=== PATIENT | male | born 1940 | race Caucasian/White ===

== ENCOUNTER 2017-03-13 09:20 | Emergency (ER) | payer MEDICARE, OTHER ==
[~2017-03-13] VITALS: Ht 172.7 cm; Wt 91.6 kg
[~2017-03-13 09:20] MED LIST: ASPI-558 PO; LISI-126 PO; OMEP20TA11 PO
--- OUTSIDE RECORDS SUMMARY | 2017-03-13 09:24 | XMS REPORT | Referral Summary ---
Author Author [facility] Organization [facility] Address Unknown Phone Unavailable Care Team Providers Care Special Class Welder Name Role Phone Teri Paul Primary Care Physician [phone] Encounter Date(s): 04/07/15 - 04/07/15 [facility], [address] [place] [address]- Discharge Diagnosis: Erectile dysfunction Discharge Diagnosis: Gastroesophageal reflux disease Discharge Diagnosis: Hand numbness Discharge Diagnosis: Hyperlipidemia Discharge Diagnosis: Need for pneumococcal vaccination Discharge Diagnosis: Chest pain Discharge Diagnosis: Adenomatous colon polyp Discharge Diagnosis: Leg cramps Discharge Diagnosis: Benign essential hypertension Discharge Diagnosis: Obstructive sleep apnea syndrome Discharge Disposition: 01-Home or Self Care Attending Physician: Ivan Paul MD Admitting Physician: Ivan Paul MD Vital Signs Most recent to 1 oldest [Reference Range]: Temperature Tympanic 36.3 degC [36.6-38.1 degC] *LOW* (04/07/15 8:45 AM) Peripheral Pulse 64 bpm Rate [60-100 bpm] (04/07/15 8:45 AM) Blood Pressure 154/75 mmHg [90-140/60-90 mmHg] *HI* (04/07/15 8:45 AM) Problem List Condition Effective Dates Status Health Status Informant Adenomatous colon Active polyp(Confirmed) Anginal Active pain(Confirmed) Xerosis of < 08/08/14 Resolved skin(Confirmed) Benign essential Active hypertension (disorder)(Confirmed ) Benign < 08/08/14 Resolved hypertension(Confirm ed) Benign neoplasm of Resolved colon (disorder)(Confirmed ) Colon < 08/08/14 Resolved polyp(Confirmed) Cutaneous < 08/08/14 Resolved horn(Confirmed) Depression(Confirmed < 08/08/14 Resolved ) Erectile Active dysfunction(Confirme d) Esophageal < 08/08/14 Resolved reflux(Confirmed) Gastroesophageal Active reflux disease (disorder)(Confirmed ) GERD < 08/08/14 Resolved (gastroesophageal reflux disease)(Confirmed) Hyperlipidemia(Confi Active rmed) Hypertension(Confirm Active ed) Hypotension(Confirme < 08/08/14 Resolved d) Inflamed seborrheic Resolved keratosis (disorder)(Confirmed ) Enlarged Active prostate(Confirmed) Obesity(Confirmed) Active patient Obstructive sleep Active apnea syndrome (disorder)(Confirmed ) Pure Resolved hypercholesterolemia (disorder)(Confirmed ) Sleep apnea, < 08/08/14 Resolved obstructive(Confirme d) 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/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(Confirm ed) Allergies, Adverse Reactions, Alerts No Known Medication Allergies Medications Aspirin Low Strength 81 mg, Oral, Daily, 0 Refill(s) Start Date: 10/07/14 Status: Ordered finasteride 5 mg oral tablet See Instructions, TAKE ONE TABLET BY MOUTH DAILY, # 90 tabs, 3 Refill(s), eRx: [facility] #[id number], TAKE ONE TABLET BY MOUTH DAILY Start Date: 05/27/15 Status: Ordered Hyzaar 50 mg-12.5 mg oral tablet See Instructions, TAKE ONE TABLET BY MOUTH EVERY DAY, # 30 tabs, 3 Refill(s), eRx: [facility] #[id number], TAKE ONE TABLET BY MOUTH EVERY DAY Start Date: 05/15/15 Status: Ordered omeprazole 20 mg oral delayed release capsule See Instructions, TAKE ONE CAPSULE BY MOUTH EVERY DAY, # 30 caps, 5 Refill(s), eRx: [facility] #[id number], TAKE ONE CAPSULE BY MOUTH EVERY DAY Start Date: 04/10/15 Status: Ordered Viagra 50 mg oral tablet See Instructions, TAKE ONE TABLET BY MOUTH EVERY DAY NEEDED, # 10 tabs, 1 Refill(s), eRx: [facility] #[id number], TAKE ONE TABLET BY MOUTH EVERY DAY NEEDED Start Date: 07/09/15 Status: Ordered Results Chemistry Most recent to 1 oldest [Reference Range]: Sodium Lvl [135-144 140 mEq/L mEq/L] (04/07/15 9:20 AM) Potassium Lvl 4.2 mEq/L [3.5-5.2 mEq/L] (04/07/15 9:20 AM) Chloride [99-111 103 mEq/L mEq/L] (04/07/15 9:20 AM) CO2 [23-31 mEq/L] 27 mEq/L (04/07/15 9:20 AM) AGAP [3-20] 10 (04/07/15 9:20 AM) BUN [8-26 mg/dL] 17 mg/dL (04/07/15 9:20 AM) Glucose Lvl [70-99 99 mg/dL mg/dL] (04/07/15 9:20 AM) Creatinine Lvl 0.80 mg/dL [0.72-1.25 mg/dL] (04/07/15 9:20 AM) eGFR [>60 mL/min] >60 mL/min 1 (04/07/15 9:20 AM) Calcium Lvl 9.6 mg/dL [8.9-10.5 mg/dL] (04/07/15 9:20 AM) Chol [0-199 mg/dL] 221 mg/dL *HI* (04/07/15:20 AM) Trig [0-149 mg/dL] 138 mg/dL (04/07/15 9:20 AM) HDL [40-84 mg/dL] 45 mg/dL (04/07/15 9:20 AM) LDL [0-130 mg/dL] 148 mg/dL *HI* (04/07/15 9:20 AM) VLDL Cholesterol 28 mg/dL [0-28 mg/dL] (04/07/15 9:20 AM) Cardiac Risk 4.9 [0.0-5.7] (04/07/15 9:20 AM) 1Result Comment: Multiply eGFR results by 1.21 for race. Immunizations Vaccine Date Refusal Reason influenza virus vaccine, live 10/01/13 influenza virus vaccine, live 09/04/12 pneumococcal 13-valent conjugate vaccine 04/07/15 pneumococcal 23-polyvalent vaccine 01/09/08 tetanus-diphth toxoids (Td) adult/adol 11/08/02 zoster vaccine live 02/23/10 Procedures Procedure Date Related Diagnosis Body Site Cystoscopy 04/25/13 Eye examination1 10/31/12 Colonoscopy2 05/24/11 Colonoscopy 2004 Fusion of lumbar spine 1994 Right Inguinal hernia 1Dtalya Puentes 2Neg 05-24-11, Recheck 2016 Social History Social History Type Response Smoking Status Never smoker Assessment and Plan Extracted from: Title: Office Visit Note-CRMMP Author: Ivan Paul MD Date: 04/07/15 Assessment/Plan Adenomatous colon polyp Repeat colonoscopy due in 2016. Benign essential hypertension Today's blood pressure a bit high. Advised to monitor blood pressures over a month's time and follow-up if they continue to run above goal of 140/90 or less. Ordered: Basic Metabolic Panel Chest pain These pains are atypical for cardiac cause, other obvious explanation identified. EKG was obtained which shows no significant change, although there is some mild nonspecific IVCD. We'll refer to Dr. Lester for reevaluation (he did previous testing in 2010). Ordered: EKG with Interpretation [id number] Erectile dysfunction Gastroesophageal reflux disease Hand numbness Symptoms seem fairly minor and mild, probably positional. I did not launch any further workup at this point but follow-up if these get worse. Hyperlipidemia Check fasting lipids today. Ordered: Lipid Panel Leg cramps Check BMP today. Need for pneumococcal vaccination Obstructive sleep apnea syndrome Her to sleep medicine for reevaluation. If all goes well, will follow-up in 6 months. Follow-up sooner if needed.
--- OUTSIDE RECORDS SUMMARY | 2017-03-13 09:24 | XMS REPORT | Referral Summary ---
Author Author [facility] Organization [facility] Address Unknown Phone Unavailable Care Team Providers Care Sustainable Development Policy Analyst Name Role Phone Teri Paul Primary Care Physician [phone] Encounter VC Date(s): 05/28/15 - 05/28/15 [facility] [address] [place] [address] Discharge Diagnosis: Left knee pain Discharge Diagnosis: Hematoma Discharge Diagnosis: Prepatellar bursitis Discharge Disposition: 01-Home or Self Care Attending Physician: Ivan Paul MD Admitting Physician: Iavn Paul MD Vital Signs Most recent to 1 oldest [Reference Range]: Temperature Tympanic 37.1 degC [36.6-38.1 degC] (05/28/15 11:12 AM) Peripheral Pulse 64 bpm Rate [60-100 bpm] (05/28/15 11:12 AM) Blood Pressure 138/75 mmHg [90-140/60-90 mmHg] (05/28/15 11:12 AM) Problem List Condition Effective Dates Status [...] GERD < 08/08/14 Resolved (gastroesophageal reflux disease)(Confirmed) Hypertension(Confirm Active ed) Hypotension(Confirme < 08/08/14 Resolved d) Inflamed seborrheic Resolved keratosis (disorder)(Confirmed ) Enlarged Active prostate(Confirmed) Hyperlipidemia(Confi Active rmed) Obesity(Confirmed) Active patient Obstructive sleep Active apnea [...] DAILY, # 90 tabs, 3 Refill(s), eRx: [facility] #[id number], TAKE ONE TABLET BY MOUTH DAILY Start Date: 05/27/15 Status: Ordered Hyzaar 50 mg-12.5 mg oral tablet See Instructions, TAKE ONE TABLET BY MOUTH EVERY DAY, # 30 tabs, 3 Refill(s), eRx: [facility] #[id number], TAKE ONE TABLET BY MOUTH EVERY DAY Start Date: 05/15/15 Status: Ordered omeprazole 20 mg oral delayed release capsule See Instructions, TAKE ONE CAPSULE BY MOUTH EVERY OTHER DAY, # 30 caps, 5 Refill(s), eRx: [facility] #[id number], TAKE ONE CAPSULE BY MOUTH EVERY DAY Start Date: 04/10/15 Status: Ordered Viagra 50 mg oral tablet See Instructions, TAKE ONE TABLET BY MOUTH EVERY DAY NEEDED, # 10 tabs, 1 Refill(s), eRx: [facility] #[id number], TAKE ONE TABLET BY MOUTH EVERY DAY NEEDED Start Date: 07/09/15 Status: Ordered Results No data available for this section Immunizations Vaccine Date Refusal Reason influenza virus vaccine, inactivated 09/20/15 influenza virus vaccine, live 10/01/13 influenza virus vaccine, live 09/04/12 pneumococcal 13-valent conjugate vaccine 09/20/15 pneumococcal 13-valent conjugate vaccine 04/07/15 pneumococcal 23-polyvalent vaccine 01/09/08 tetanus-diphth toxoids (Td) adult/adol 11/08/02 zoster vaccine live 02/23/10 Procedures Procedure Date Related Diagnosis Body Site Cystoscopy 04/25/13 Eye examination1 10/31/12 Colonoscopy2 6/27/11 Colonoscopy 2004 Fusion of lumbar spine 1994 Right Inguinal hernia 1Dr. Dhaval 2Neg 27-, Recheck 2016 Social History Social History Type Response Smoking Status Never smoker Assessment and Plan Extracted from: Title: Office Visit Note Author: Ivan Paul MD Date: 05/28/15 Assessment/Plan Hematoma Resolving hematoma. Observe and follow-up if it does not completely resolve spontaneously. Left knee pain X-rays are obtained and show moderate osteoarthritis, particularly the medial aspect of the joint space and a little bit under the kneecap. I suggested Tylenol 3000 mg daily as initial pain medication. Follow-up if symptoms not adequately controlled with that. Ordered: XR Knee 3 Views Left Prepatellar bursitis There is perhaps an element of prepatellar bursitis, but there is also some chronic underlying bony reaction/prominence. At this point no specific treatment needed.
--- OUTSIDE RECORDS SUMMARY | 2017-03-13 09:24 | XMS REPORT | Referral Summary ---
Author Author [facility] Organization [facility] Address Unknown Phone Unavailable Care Team Providers Care Tearoom Host Name Role Phone Teri Paul Primary Care Physician [phone] Encounter VC Date(s): 05/06/16 - 05/06/16 [facility] [address] [place] [address] [place] [address] Discharge Disposition: 01-Home or Self Care Attending Physician: Mervin Esquivel JR, MD Admitting Physician: Mervin Esquivel JR, MD Referring Physician: Ivan Paul MD Vital Signs Most recent to 1 oldest [Reference Range]: Temperature Tympanic 36.3 degC [36.6-38.1 degC] *LOW* (05/06/16 9:06 AM) Apical Heart Rate 54 bpm [60-100 bpm] *LOW* (05/06/16 9:06 AM) Blood Pressure 142/80 mmHg [90-140/60-90 mmHg] *HI* (05/06/16 9:06 AM) SpO2 90 % (05/06/16 9:06 AM) Problem List Condition Effective Dates Status [...] DAILY, # 90 tabs, 3 Refill(s), eRx: [facility] #[id number], TAKE ONE TABLET BY MOUTH DAILY Start Date: 05/27/15 Status: Ordered losartan-hydrochlorothiazide 50 mg-12.5 mg oral tablet See Instructions, TAKE ONE TABLET BY MOUTH DAILY, # 30 tabs, 5 Refill(s), eRx: [facility] #[id number], TAKE ONE TABLET BY MOUTH DAILY Start Date: 04/27/16 Status: Ordered omeprazole 20 mg oral delayed release capsule See Instructions, TAKE ONE CAPSULE BY MOUTH EVERY DAY, # 30 caps, 1 Refill(s), eRx: [facility] #[id number], TAKE ONE CAPSULE BY MOUTH EVERY DAY Start Date: 02/23/16 Status: Ordered Viagra 100 mg oral tablet 50 mg 0.5 tabs, Oral, Daily, as needed for erectile dysfunction, # 10 tabs, 0 Refill(s), Pharmacy: [facility] #[id number], 0.5 tabs Oral Daily,PRN:as needed for erectile dysfunction Start Date: 05/06/16 Status: Ordered Results No data available for [...] 04/25/13 Eye examination1 10/31/12 Colonoscopy2 05/24/11 Colonoscopy 2005 Fusion of lumbar spine 1994 Right Inguinal hernia 1DrJessica Puentes 2Neg 05-24-11, Recheck 2016 Social History Social History Type Response Smoking Status Never smoker Assessment and Plan No data available for this section
--- OUTSIDE RECORDS SUMMARY | 2017-03-13 09:24 | XMS REPORT | Referral Summary ---
Author Author [facility] Organization [facility] Address Unknown Phone Unavailable Care Team Providers Care Lapel Padder Blindstitch Name Role Phone Teri Paul Primary Care Physician [phone] Encounter VC Date(s): 05/06/15 - 05/06/15 [facility] [address] [place] [address] [place] [address]- Discharge Diagnosis: BPH Discharge Disposition: 01-Home or Self Care Attending Physician: Mervin Esquivel JR, MD Admitting Physician: Mervin Esquivel JR, MD Vital Signs Most recent to 1 oldest [Reference Range]: Peripheral Pulse 59 bpm Rate [60-100 bpm] *LOW* (05/06/15 10:53 AM) Blood Pressure 144/72 mmHg [90-140/60-90 mmHg] *HI* (05/06/15 10:53 AM) SpO2 97 % (05/06/15 10:53 AM) Problem List Condition Effective Dates Status [...] [facility] #[id number], TAKE ONE TABLET BY MOUTH DAILY Start Date: 05/27/15 Status: Ordered Hyzaar 50 mg-12.5 mg oral tablet See Instructions, TAKE ONE TABLET BY MOUTH EVERY DAY, # 30 tabs, 3 Refill(s), eRx: [facility] #[id number], TAKE ONE TABLET BY MOUTH EVERY DAY Start Date: 05/15/15 Status: Ordered omeprazole 20 mg oral delayed release capsule See Instructions, TAKE ONE CAPSULE BY MOUTH EVERY DAY, # 30 caps, 5 Refill(s), eRx: [facility] #[id number], TAKE ONE CAPSULE BY MOUTH EVERY DAY Start Date: 04/10/15 Status: Ordered Viagra 50 mg oral tablet See Instructions, TAKE ONE TABLET BY MOUTH EVERY DAY NEEDED, # 10 tabs, 1 Refill(s), eRx: [facility] #[id number], TAKE ONE TABLET BY MOUTH EVERY DAY NEEDED Start Date: 07/09/15 Status: Ordered Results Chemistry Most recent to 1 oldest [Reference Range]: PSA (wihout Reflex 0.6 ng/mL 1 Free) [0.0-6.5 (05/06/15 10:50 AM) ng/mL] 1Result Comment: AUA PSA Best Practice Guidelines: Age-Adjusted PSA Values by Ethnic Group Age Range Asians - Caucasians Americans 40-49 0-2.0 0-2.0 0-2.5 50-59 0-3.0 0-4.0 0-3.5 60-69 0-4.0 0-4.5 0-4.5 70-79 0-5.0 0-5.5 0-6.5 Immunizations Vaccine Date Refusal Reason influenza virus vaccine, live 10/01/13 influenza virus vaccine, live 09/04/12 pneumococcal 13-valent conjugate vaccine 04/07/15 pneumococcal 23-polyvalent vaccine 01/09/08 tetanus-diphth toxoids (Td) adult/adol 11/08/02 zoster vaccine live 02/23/10 Procedures Procedure Date Related Diagnosis Body Site Cystoscopy 04/25/13 Eye examination1 10/31/12 Colonoscopy2 05/24/11 Colonoscopy 2004 Fusion of lumbar spine 1994 Right Inguinal hernia 1Dr. Dhaval 2Neg 05-24-11, Recheck 2016 Social History Social History Type Response Smoking Status Never smoker Assessment and Plan Extracted from: Title: Ambulatory Patient Education Author: Mervin Esquivel JR, MD Date : 05/06/15 Follow Up With: Where: When: Ivan Paul [address] [place] [address] Drive; [place] [address] Business (1) Within 3 to 5 days Comments: Follow Up With: Where: When: Mervin Esquivel [address] [place] [address] Drive; [place] [address] Business (1) In 1 year 05/06/2016 Comments: Extracted from: Title: Office Visit Note Author: Mervin Esquivel JR, MD Date: 05/06/15 Assessment/Plan BPH With lower urinary tract symptoms taking finasteride. Erectile dysfunction he is taking Viagra. We will continue. Essential hypertension. Continue taking Hyzaar and aspirin. History of GERD. Continue taking omeprazole. Recheck in my office in one year. PSA a week before next visit or to come and see me sooner if having troubles with urination. 15 minute face to face visit with 2/3 of the visit devoted to counseling. Ordered: Office Visit Level 3 Est [id number]
--- OUTSIDE RECORDS SUMMARY | 2017-03-13 09:24 | XMS REPORT | Referral Summary ---
Author Author [facility] Organization [facility] Address Unknown Phone Unavailable Care Team Providers Care Caramel Cutter Machine Name Role Phone Teri Paul Primary Care Physician [phone] Encounter Date(s): 05/19/15 - 05/19/15 [facility] [address] [facility], [facility] [address] [place], [place] [address] Discharge Diagnosis: Obstructive sleep apnea, adult Discharge Disposition: 01-Home or Self Care Attending Physician: Stefano Suarez MD Admitting Physician: Stefano Suarez MD Vital Signs No data available for this section Problem List Condition Effective Dates Status Health [...] DAILY, # 90 tabs, 3 Refill(s), eRx: [facility] #[id number], TAKE ONE TABLET BY MOUTH DAILY Start Date: 05/27/15 Status: Ordered Hyzaar 50 mg-12.5 mg oral tablet See Instructions, TAKE ONE TABLET BY MOUTH EVERY DAY, # 30 tabs, 3 Refill(s), eRx: [facility] #[id number], TAKE ONE TABLET BY MOUTH EVERY DAY Start Date: 05/15/15 Status: Ordered omeprazole 20 mg oral delayed release capsule See Instructions, TAKE ONE CAPSULE BY MOUTH EVERY OTHER DAY, # 30 caps, 5 Refill(s), eRx: [facility] #[id number], TAKE ONE CAPSULE BY MOUTH EVERY DAY Start Date: 04/10/15 Status: Ordered Viagra 50 mg oral tablet See Instructions, TAKE ONE TABLET BY MOUTH EVERY DAY NEEDED, # 10 tabs, 1 Refill(s), eRx: [facility] #[id number], TAKE ONE TABLET BY MOUTH EVERY DAY [...]
--- OUTSIDE RECORDS SUMMARY | 2017-03-13 09:24 | XMS REPORT | Referral Summary ---
Author Author [facility] Organization [facility] Address Unknown Phone Unavailable Care Team Providers Care Manager Intel Name Role Phone Teri Paul Primary Care Physician [phone] Encounter VC Date(s): 06/05/15 - 06/05/15 [facility] [address] [facility], [address] [address] Discharge Diagnosis: Obstructive sleep apnea syndrome (disorder) Discharge Disposition: 01-Home or Self Care Attending Physician: Stefano Suarez MD Admitting Physician: Stefano Suarez MD Vital Signs Most recent to 1 oldest [Reference Range]: Peripheral Pulse 57 bpm Rate [60-100 bpm] *LOW* (06/05/15 10:47 AM) Blood Pressure 136/80 mmHg [90-140/60-90 mmHg] (06/05/15 10:47 AM) SpO2 94 % (06/05/15 10:47 AM) Problem List Condition Effective Dates Status [...] DAILY, # 90 tabs, 3 Refill(s), eRx: [facility] #[id number], TAKE ONE TABLET BY MOUTH DAILY Start Date: 05/27/15 Status: Ordered Hyzaar 50 mg-12.5 mg oral tablet See Instructions, TAKE ONE TABLET BY MOUTH EVERY DAY, # 30 tabs, 3 Refill(s), eRx: [facility] #[id number], TAKE ONE TABLET BY MOUTH EVERY DAY Start Date: 05/15/15 Status: Ordered omeprazole 20 mg oral delayed release capsule See Instructions, TAKE ONE CAPSULE BY MOUTH EVERY OTHER DAY, # 30 caps, 5 Refill(s), eRx: [facility] #[id number], TAKE ONE CAPSULE BY MOUTH EVERY DAY Start Date: 04/10/15 Status: Ordered Viagra 50 mg oral tablet See Instructions, TAKE ONE TABLET BY MOUTH EVERY DAY NEEDED, # 10 tabs, 1 Refill(s), eRx: [facility] #[id number], TAKE ONE TABLET BY MOUTH EVERY DAY [...] Extracted from: Title: Office Visit Note Author: Stefano Suarez MD Date: 06/05/15 Assessment/Plan Obstructive sleep apnea syndrome (disorder) Impression: Mild obstructive sleep apnea syndrome, with more severe pathology during REM sleep. The patient has failed CPAP. He has been tried on multiple pressures with multiple masks and he cannot tolerate CPAP treatment. A bilevel machine is indicated. Plan: We reviewed the study in detail. He was given a summary page and an example page. After discussion of the options, he is going to come in for a bilevel titration. Assuming he tolerates the bilevel pressure better, we will then order him a machine and see him back afterwards. Referrals to Other Providers Referred by: Stefano Suarez MD
[2017-03-13 09:25] VITALS: Ht 172.7 cm; Wt 91.6 kg
--- OUTSIDE RECORDS SUMMARY | 2017-03-13 09:25 | XMS REPORT | Referral Summary ---
Author Author [facility] Organization [facility] Address Unknown Phone Unavailable Care Team Providers Care Flight Test Mechanic Name Role Phone Teri Paul Primary Care Physician [phone] Encounter Date(s): 04/07/15 - 04/07/15 [facility], [address] [place] [address]- Discharge Diagnosis: Erectile dysfunction Discharge Diagnosis: Gastroesophageal [...] DAILY, # 90 tabs, 3 Refill(s), eRx: [facility] #[id number], TAKE ONE TABLET BY MOUTH DAILY Start Date: 05/27/15 Status: Ordered Hyzaar 50 mg-12.5 mg oral tablet See Instructions, TAKE ONE TABLET BY MOUTH EVERY DAY, # 30 tabs, 3 Refill(s), eRx: [facility] #[id number], TAKE ONE TABLET BY MOUTH EVERY DAY Start Date: 05/15/15 Status: Ordered omeprazole 20 mg oral delayed release capsule See Instructions, TAKE ONE CAPSULE BY MOUTH EVERY DAY, # 30 caps, 5 Refill(s), eRx: [facility] #[id number], TAKE ONE CAPSULE BY MOUTH EVERY DAY Start Date: 04/10/15 Status: Ordered Viagra 50 mg oral tablet See Instructions, TAKE ONE TABLET BY MOUTH EVERY DAY NEEDED, # 10 tabs, 1 Refill(s), eRx: [facility] #[id number], TAKE ONE TABLET BY MOUTH EVERY DAY [...] testing in 2010). Ordered: EKG with Interpretation [id number] Erectile dysfunction Gastroesophageal reflux disease Hand numbness [...]
--- OUTSIDE RECORDS SUMMARY | 2017-03-13 09:25 | XMS REPORT | Referral Summary ---
Author Author [facility] Organization [facility] Address Unknown Phone Unavailable Care Team Providers Care Appraiser Auditor Name Role Phone Teri Paul Primary Care Physician [phone] Encounter VC VIANEY [id number] Date(s): 12/23/16 - 12/23/16 [facility] [address], [place] [address] Discharge Diagnosis: Nerve deafness, bilateral Discharge Disposition: 01-Home or Self Care Attending Physician: Ric Shukla JR, MD Admitting Physician: Ric Shukla JR, MD Vital Signs Most recent to 1 oldest [Reference Range]: Temperature Oral 36.6 degC [35.8-37.3 degC] (12/16/16 9:00 AM) Temperature Temporal 36.4 degC Artery [36.3-37.8 (12/23/16 2:09 PM) degC] Peripheral Pulse 55 bpm Rate [60-100 bpm] *LOW* (12/23/16 6:42 AM) Heart Rate Monitored 77 bpm [60-100 bpm] (12/23/16 4:05 PM) Respiratory Rate 20 br/min [14-20 br/min] (12/23/16 4:05 PM) Blood Pressure 164/98 mmHg [90-140/60-90 mmHg] *HI* (12/23/16 4:05 PM) Mean Arterial 124 mmHg Pressure, Cuff (12/23/16 4:05 PM) SpO2 98 % (12/23/16 4:05 PM) Problem List Condition Effective Dates Status Health Status Informant Adenomatous colon Active polyp(Confirmed) Anginal Active pain(Confirmed) Arthritis of both Active patient hands(Confirmed) Xerosis of < 08/08/14 Resolved skin(Confirmed) Benign essential Active hypertension (disorder)(Confirmed ) Benign < 08/08/14 Resolved hypertension(Confirm ed) Benign neoplasm of Resolved colon (disorder)(Confirmed ) BPH with Active obstruction/lower urinary tract symptoms(Confirmed) Colon < 08/08/14 Resolved polyp(Confirmed) Cutaneous < 08/08/14 Resolved horn(Confirmed) Depression(Confirmed < 08/08/14 Resolved ) Erectile Active dysfunction(Confirme d) Esophageal < 08/08/14 Resolved reflux(Confirmed) Gastroesophageal Active reflux disease (disorder)(Confirmed ) GERD < 08/08/14 Resolved (gastroesophageal reflux disease)(Confirmed) [place] (hard of Active patient hearing)(Confirmed)1 Hypertension(Confirm Active ed) Hypotension(Confirme < 08/08/14 Resolved d) Inflamed seborrheic Resolved keratosis (disorder)(Confirmed ) Enlarged Active prostate(Confirmed) Hyperlipidemia(Confi Active rmed) Obesity(Confirmed) Active patient Obstructive sleep Active apnea syndrome (disorder)(Confirmed ) Pure Resolved hypercholesterolemia (disorder)(Confirmed ) Sleep apnea, < 08/08/14 Resolved obstructive(Confirme d) Insomnia(Confirmed) Active patient 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/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(Confirm ed) 1bil Allergies, Adverse Reactions, Alerts No Known Medication Allergies Medications Aspirin Low Strength 81 mg, Oral, Daily, 0 Refill(s) Start Date: 10/07/14 Status: Ordered finasteride 5 mg, Oral, Daily, 0 Refill(s) Start Date: 12/16/16 Status: Ordered Keflex 500 mg oral capsule 500 mg 1 caps, Oral, q12hr, # 10 caps, 0 Refill(s), other reason (Rx) Start Date: 12/23/16 Stop Date: 12/29/16 Status: Ordered losartan-hydrochlorothiazide 50 mg-12.5 mg oral tablet 1 tabs, Oral, Daily, 0 Refill(s) Start Date: 12/16/16 Status: Ordered [place] 7.5 mg-325 mg oral tablet 1 tabs, Oral, q6hr, as needed for pain, # 20 tabs, 0 Refill(s), other reason (Rx ) Start Date: 12/23/16 Stop Date: 12/29/16 Status: Ordered omeprazole 20 mg, Oral, Daily, 0 Refill(s) Start Date: 12/16/16 Status: Ordered Viagra 100 mg oral tablet 50 mg 0.5 tabs, Oral, Daily, as needed for erectile dysfunction, # 10 tabs, 5 Refill(s), Pharmacy: [facility] #[id number], 0.5 tabs Oral Daily,PRN:as needed for erectile dysfunction Start Date: 10/11/16 Status: Ordered Zofran 4 mg oral tablet 4 mg 1 tabs, Oral, q8hr, as needed for nausea/vomiting, # 10 tabs, 0 Refill(s), other reason (Rx) Start Date: 12/23/16 Status: Ordered Results Chemistry Most recent to 1 oldest [Reference Range]: Sodium Lvl [136-144 137 mEq/L mEq/L] (12/23/16 6:37 AM) Potassium Lvl 3.7 mEq/L [3.6-5.1 mEq/L] (12/23/16 6:37 AM) Chloride [99-109 103 mEq/L mEq/L] (12/23/16 6:37 AM) CO2 [22-32 mEq/L] 25 mEq/L (12/23/16 6:37 AM) AGAP [3-20] 9 (12/23/16 6:37 AM) BUN [4-20 mg/dL] 15 mg/dL (12/23/16 6:37 AM) Glucose Lvl [70-100 97 mg/dL mg/dL] (12/23/16 6:37 AM) Creatinine Lvl 0.87 mg/dL [0.64-1.27 mg/dL] (12/23/16 6:37 AM) eGFR [>60] >60 1 (12/23/16 6:37 AM) Calcium Lvl 8.7 mg/dL [8.6-10.0 mg/dL] (12/23/16 6:37 AM) Blood Glucose, 89 mg/dL Capillary [70-100 (12/23/16 6:41 AM) mg/dL] 1Result Comment: Multiply eGFR results by 1.21 for race. Immunizations Given and Recorded Vaccine Date Status Refusal Reason influenza virus vaccine, inactivated1 09/16/16 Recorded influenza virus vaccine, inactivated 09/15/16 Recorded influenza virus vaccine, inactivated 09/20/15 Recorded influenza virus vaccine, live 10/01/13 Given influenza virus vaccine, live 09/04/12 Given pneumococcal 13-valent conjugate vaccine 09/20/15 Recorded pneumococcal 13-valent conjugate vaccine 04/07/15 Given pneumococcal 23-polyvalent vaccine 01/09/08 Recorded tetanus-diphth toxoids (Td) adult/adol 11/08/02 Recorded zoster vaccine live 02/23/10 Recorded 1Result Comment: [09/22/2016 Uncharted] duplicate entry Procedures Procedure Date Related Diagnosis Body Site Implant Cochlear (Left)1 12/23/16 Cystoscopy 04/25/13 Colonoscopy2 05/24/11 Colonoscopy 2004 Fusion of lumbar spine 1994 Right Inguinal hernia 1auto-populated from documented surgical case 2Neg 05-24-11, Recheck 2016 Social History Social History Type Response Smoking Status Never smoker Assessment and Plan No data available for this section
--- OUTSIDE RECORDS SUMMARY | 2017-03-13 09:25 | XMS REPORT | Referral Summary ---
Author Author [facility] Organization [facility] Address Unknown Phone Unavailable Care Team Providers Care Credit And Collections Representative Name Role Phone Beverly Teri Primary Care Physician [phone] Encounter Date(s): 06/03/15 - 06/03/15 [facility] [address] [place], [place] [address] Discharge Disposition: 01-Home or Self Care Attending Physician: Ramakrishna Lester MD Admitting Physician: Ramakrishna Lester MD Vital Signs No data available for [...] DAILY, # 90 tabs, 3 Refill(s), eRx: [facility] #[id number], TAKE ONE TABLET BY MOUTH DAILY Start Date: 05/27/15 Status: Ordered Hyzaar 50 mg-12.5 mg oral tablet See Instructions, TAKE ONE TABLET BY MOUTH EVERY DAY, # 30 tabs, 3 Refill(s), eRx: [facility] #[id number], TAKE ONE TABLET BY MOUTH EVERY DAY Start Date: 05/15/15 Status: Ordered omeprazole 20 mg oral delayed release capsule See Instructions, TAKE ONE CAPSULE BY MOUTH EVERY OTHER DAY, # 30 caps, 5 Refill(s), eRx: [facility] #[id number], TAKE ONE CAPSULE BY MOUTH EVERY DAY Start Date: 04/10/15 Status: Ordered Viagra 50 mg oral tablet See Instructions, TAKE ONE TABLET BY MOUTH EVERY DAY NEEDED, # 10 tabs, 1 Refill(s), eRx: [facility] #[id number], TAKE ONE TABLET BY MOUTH EVERY DAY [...]
--- OUTSIDE RECORDS SUMMARY | 2017-03-13 09:25 | XMS REPORT | Referral Summary ---
Author Author [facility] Organization [facility] Address Unknown Phone Unavailable Care Team Providers Care Legal Associate Name Role Phone Teri Paul Primary Care Physician [phone] Encounter VC Date(s): 04/05/16 - 04/05/16 [facility], [address] [place] [address]- Discharge Diagnosis: Adenomatous colon polyp Discharge Diagnosis: Obstructive sleep apnea syndrome Discharge Diagnosis: Prostate cancer screening Discharge Diagnosis: Gastroesophageal reflux disease Discharge Diagnosis: Benign essential hypertension Discharge Diagnosis: Mixed hyperlipidemia Discharge Disposition: 01-Home or Self Care Attending Physician: Ivan Paul MD Admitting Physician: Ivan Paul MD Vital Signs Most recent to 1 oldest [Reference Range]: Temperature Tympanic 36.4 degC [36.6-38.1 degC] *LOW* (04/05/16 8:09 AM) Peripheral Pulse 85 bpm Rate [60-100 bpm] (04/05/16 8:09 AM) Blood Pressure 137/75 mmHg [90-140/60-90 mmHg] (04/05/16 8:09 AM) Problem List Condition Effective Dates Status [...] DAILY, # 90 tabs, 3 Refill(s), eRx: [facility] #[id number], TAKE ONE TABLET BY MOUTH DAILY Start Date: 05/27/15 Status: Ordered Hyzaar 50 mg-12.5 mg oral tablet See Instructions, TAKE ONE TABLET BY MOUTH DAILY, # 30 tabs, 1 Refill(s), eRx: [facility] #[id number], TAKE ONE TABLET BY MOUTH DAILY Start Date: 02/23/16 Status: Ordered omeprazole 20 mg oral delayed release capsule See Instructions, TAKE ONE CAPSULE BY MOUTH EVERY DAY, # 30 caps, 1 Refill(s), eRx: [facility] #[id number], TAKE ONE CAPSULE BY MOUTH EVERY DAY Start Date: 02/23/16 Status: Ordered Viagra 50 mg oral tablet See Instructions, TAKE ONE TABLET BY MOUTH EVERY DAY NEEDED, # 10 tabs, 0 Refill(s), Pharmacy: [facility] #[id number], TAKE ONE TABLET BY MOUTH EVERY DAY NEEDED Start Date: 03/12/16 Status: Ordered Results Hematology Most recent to 1 oldest [Reference Range]: WBC [4.8-10.8 5.8 10*3/uL 10*3/uL] (04/05/16 8:50 AM) RBC [4.60-6.20] 5.15 (04/05/16 8:50 AM) Hgb [14.0-18.0 16.1 gm/dL gm/dL] (04/05/16 8:50 AM) Hct [42.0-52.0 %] 46.9 % (04/05/16 8:50 AM) MCV [82.0-99.0 fL] 91.1 fL (04/05/16 8:50 AM) MCH [27.0-32.0 pg] 31.3 pg (04/05/16 8:50 AM) MCHC [32.0-36.0 34.3 gm/dL gm/dL] (04/05/16 8:50 AM) RDW [11.5-14.5 %] 12.8 % (04/05/16 8:50 AM) Platelet [150-400 257 10*3/uL 10*3/uL] (04/05/16 8:50 AM) MPV [8.8-14.8 fL] 10.2 fL (04/05/16 8:50 AM) Immature 0.2 % Granulocytes (04/05/16 8:50 AM) [0.0-1.0 %] Neutrophils [51-75 69 % %] (04/05/16 8:50 AM) Lymphocytes [20-46 21 % %] (04/05/16 8:50 AM) Monocytes [4-11 %] 8 % (04/05/16 8:50 AM) Eosinophils [0-4 %] 2 % (04/05/16 8:50 AM) Basophils [0-2 %] 1 % (04/05/16 8:50 AM) Neutro Absolute 4.01 10*3 [1.90-7.00 10*3] (04/05/16 8:50 AM) Lymph Absolute 1.19 10*3 [0.80-3.30 10*3] (04/05/16 8:50 AM) [place] Absolute 0.44 10*3 [0.30-1.00 10*3] (04/05/16 8:50 AM) Eos Absolute 0.11 10*3 [0.00-0.50 10*3] (04/05/16 8:50 AM) Baso Absolute 0.04 10*3 [0.00-0.20 10*3] (04/05/16 8:50 AM) Chemistry Most recent to 1 oldest [Reference Range]: Sodium Lvl [135-144 138 mEq/L mEq/L] (04/05/16 8:50 AM) Potassium Lvl 4.4 mEq/L [3.5-5.2 mEq/L] (04/05/16 8:50 AM) Chloride [99-111 102 mEq/L mEq/L] (04/05/16 8:50 AM) CO2 [23-31 mEq/L] 26 mEq/L (04/05/16 8:50 AM) AGAP [3-20] 10 (04/05/16 8:50 AM) BUN [8-26 mg/dL] 18 mg/dL (04/05/16 8:50 AM) Glucose Lvl [70-99 92 mg/dL mg/dL] (04/05/16 8:50 AM) Creatinine Lvl 0.85 mg/dL [0.72-1.25 mg/dL] (04/05/16 8:50 AM) eGFR [>60 mL/min] >60 mL/min 1 (04/05/16 8:50 AM) Calcium Lvl 9.0 mg/dL [8.9-10.5 mg/dL] (04/05/16 8:50 AM) PSA (wihout Reflex 0.7 ng/mL 2 Free) [0.0-6.5 (04/05/16 8:50 AM) ng/mL] Chol [0-199 mg/dL] 198 mg/dL (04/05/16 8:50 AM) Trig [0-149 mg/dL] 135 mg/dL (04/05/16 8:50 AM) HDL [40-84 mg/dL] 37 mg/dL *LOW* (04/05/16 8:50 AM) LDL [0-130 mg/dL] 134 mg/dL *HI* (04/05/16 8:50 AM) VLDL Cholesterol 27 mg/dL [0-28 mg/dL] (04/05/16 8:50 AM) Cardiac Risk 5.4 [0.0-5.7] (04/05/16 8:50 AM) 1Result Comment: Multiply eGFR results by 1.21 for race. 2Result Comment: AUA PSA Best Practice Guidelines: Age-Adjusted [...] smoker Assessment and Plan Extracted from: Title: CRMMP Author: Ivan Paul MD Date: 04/05/16 Assessment/Plan Adenomatous colon polyp Benign essential hypertension Gastroesophageal reflux disease Mixed hyperlipidemia Obstructive sleep apnea syndrome Overall he is stable and doing well. We will check labs today including lipids and BMP, and he wanted to include a PSA since he'll be seeing Dr. CORNEJO again sometime soon. He is due for repeat colonoscopy in about a month and a half-plans to do that when contacted again by Dr. Scott. We will continue current medications and follow-up with me in 6 months or sooner if needed.
--- OUTSIDE RECORDS SUMMARY | 2017-03-13 09:25 | XMS REPORT | Continuity of Care Document ---
Author Author [facility] Address Unknown Phone Unavailable Care Team Providers Care Ash Pit Worker Name Role Phone Ivan Paul PP Unavailable Payers Payer name Insurance type Covered constitution party ID Authorization(s) Unknown Problems Condition Effective Dates (start - stop) Clinical Status Hypertension, Benign - *Chronic Hypertension, Benign - Chronic Sleep Apnea, Obstructive - *Symptomatic Cough - *Resolved Hypertension, Benign - *Fair Control BPH - *Controlled Hypertension, Benign - *Controlled Sleep Apnea, Obstructive - *Chronic Depression - *Resolved Hypercholesterolemia - *Controlled GERD - *Controlled Benign neoplasm of colon - *Resolved Muscle cramps - Intermittent Alcohol abuse - *Chronic HEMATURIA NOS - *Acute Hypertension, Benign - *Acute BPH - *Controlled Hypertension, Unspecified - *Controlled Sleep Apnea - *Chronic Hypertension, Benign - *Chronic Hypertension, Benign - *Chronic Hypertension, Benign - *Fair Control Cough - *Chronic Cramp of limb - Intermittent Upper Respiratory Infection, Acute - *Acute Sinusitis, Acute - *Acute Cough - *Acute Elevated blood pressure reading without diagnosis of hypertension - *Acute Noninfectious Gastroenteritis - *Acute GERD - Acute Exacerbation GROSS HEMATURIA - *Acute BPH - Asymptomatic PURE HYPERCHOLESTEROLEM - 311 - DEPRESSIVE DISORDER NEC - ESOPHAGEAL REFLUX - Hypertension, Benign - *Chronic Sleep Apnea, Obstructive - *Fair Control Family History Family Member Diagnosis Age At Onset Status Mother (Unknown) CAD Yes Father (Unknown) Alzheimer's Disease Yes Paternal aunt (Unknown) Alzheimer's Disease Yes Paternal uncle (Unknown) Alzheimer's Disease Yes Social History Social History Element Description Quantity alcohol 3 drinks Allergies, Adverse Reactions, Alerts Substance Reaction Severity Status Unknown Medications Medication Instructions Dosage Effective Dates (start - stop) Status inhale 9 CM by Nasal route every bedtime 0 - Active losartan 50 mg-hydrochlorothiazide 12.5 mg tablet take 1 tablet by oral route every day 0 - Active Prilosec 20 mg capsule,delayed release Take 1 by mouth every day. 2012 - Active Viagra 50 mg tablet Take 1 by mouth every day as needed. - Active finasteride 5 mg tablet take 1 tablet (5MG) by oral route every day 5 MG - Active Immunizations Vaccine Date Status Comments flu (split) (3 yrs or older) completed - Completed reason: other provider flu (split) (3 yrs or older) completed - Completed reason: public agency Results Test Name Date and Time Measure Units Reference Range Abnormal Flag Comments Panel Description: Metabolic Profile Glucose 09:24:00 85 mg/dL 70-99 BUN 09:24:00 18 mg/dL 8-26 Creatinine 09:24:00 0.89 mg/dL 0.72-1.25 Calcium 09:24:00 9.1 mg/dL 8.9-10.5 Sodium 09:24:00 141 mEq/L 135-144 Potassium 09:24:00 4.2 mEq/L 3.5-5.2 Chloride 09:24:00 104 mEq/L 99-111 CO2 09:24:00 28 mEq/L 23-31 Anion Gap 09:24:00 9 3-20 Testing performed at [facility] [address] [facility] [address] Cathead Worker Ric Kilpatrick MD Panel Description: EGFR-[facility] eGFR 09:24:00 >60 mL/min >60 Multiply eGFR results by 1.21 for race.Testing performed at [facility] [address] [facility] [address] Cathead Worker Ric Kilpatrick MD Vital Signs Date / Time: Height Weight Pulse Rate Blood Pressure Temperature /08:30:00 66.50 in 204.50 lbs 72 /min 132/82 mm[Hg] Procedures Procedure Date Unknown Encounters Encounter Location Date Patient Visit [facility] Patient Visit [facility] Patient Visit [facility] Patient Visit [facility] Patient Visit [facility] Patient Visit [facility] Patient Visit [facility] Patient Visit [facility] Patient Visit [facility] Patient Visit [facility] Patient Visit [facility] Patient Visit [facility] Patient Visit [facility] Patient Visit [facility] Patient Visit [facility] Patient Visit [facility] Patient Visit [facility] Advance Directives Directive Effective Date Unknown
--- OUTSIDE RECORDS SUMMARY | 2017-03-13 09:25 | XMS REPORT | Referral Summary ---
Author Author [facility] Organization [facility] Address Unknown Phone Unavailable Care Team Providers Care Coupling Machine Operator Name Role Phone Teri Paul Primary Care Physician [phone] Encounter Date(s): 04/07/15 - 04/07/15 [facility], [address] [place] [address]- Discharge Diagnosis: Erectile dysfunction Discharge Diagnosis: Gastroesophageal [...] DAILY, # 90 tabs, 3 Refill(s), eRx: [facility] #[id number], TAKE ONE TABLET BY MOUTH DAILY Start Date: 05/27/15 Status: Ordered Hyzaar 50 mg-12.5 mg oral tablet See Instructions, TAKE ONE TABLET BY MOUTH EVERY DAY, # 30 tabs, 3 Refill(s), eRx: [facility] #[id number], TAKE ONE TABLET BY MOUTH EVERY DAY Start Date: 05/15/15 Status: Ordered omeprazole 20 mg oral delayed release capsule See Instructions, TAKE ONE CAPSULE BY MOUTH EVERY DAY, # 30 caps, 5 Refill(s), eRx: [facility] #[id number], TAKE ONE CAPSULE BY MOUTH EVERY DAY Start Date: 04/10/15 Status: Ordered Viagra 50 mg oral tablet See Instructions, TAKE ONE TABLET BY MOUTH EVERY DAY NEEDED, # 10 tabs, 1 Refill(s), eRx: [facility] #[id number], TAKE ONE TABLET BY MOUTH EVERY DAY [...] testing in 2010). Ordered: EKG with Interpretation [id number] Erectile dysfunction Gastroesophageal reflux disease Hand numbness [...]
--- OUTSIDE RECORDS SUMMARY | 2017-03-13 09:25 | XMS REPORT | Referral Summary ---
Author Author [facility] [place] Organization [facility] [place] Address Unknown Phone Unavailable Care Team Providers Care Pocketed Spring Assembler Name Role Phone Teri Paul Primary Care Physician [phone] Encounter Date(s): 04/22/15 - 04/22/15 [facility] [place] [address], [place] [address] Discharge Diagnosis: Mild obstructive sleep apnea Discharge Disposition: 01-Home or Self Care Attending Physician: Nyasia Franco Admitting Physician: Nyasia Franco Referring Physician: Ivan Paul MD Vital Signs Most recent to 1 oldest [Reference Range]: Peripheral Pulse 59 bpm Rate [60-100 bpm] *LOW* (04/22/15 10:52 AM) Blood Pressure 162/84 mmHg [90-140/60-90 mmHg] *HI* (04/22/15 10:52 AM) SpO2 94 % (04/22/15 10:52 AM) Problem List Condition Effective Dates Status [...] 3 Refill(s), eRx: [facility] #[id number], TAKE ONE TABLET BY MOUTH DAILY Start Date: 05/27/15 Status: Ordered Hyzaar 50 mg-12.5 mg oral tablet See Instructions, TAKE ONE TABLET BY MOUTH EVERY DAY, # 30 tabs, 3 Refill(s), eRx: [facility] #[id number], TAKE ONE TABLET BY MOUTH EVERY DAY Start Date: 05/15/15 Status: Ordered omeprazole 20 mg oral delayed release capsule See Instructions, TAKE ONE CAPSULE BY MOUTH EVERY OTHER DAY, # 30 caps, 5 Refill(s), eRx: [facility] #[id number], TAKE ONE CAPSULE BY MOUTH EVERY DAY Start Date: 04/10/15 Status: Ordered Viagra 50 mg oral tablet See Instructions, TAKE ONE TABLET BY MOUTH EVERY DAY NEEDED, # 10 tabs, 1 Refill(s), eRx: [facility] #[id number], TAKE ONE TABLET BY MOUTH EVERY DAY [...] 1994 Right Inguinal hernia 1Dr. Dhaval 2Neg 6-27-11, Recheck 2016 Social History Social History Type Response Smoking Status Never smoker Assessment and Plan Extracted from: Title: Office Visit Note Author: Nyasia Franco Date: 04/22/15 Assessment/Plan 1.Mild obstructive sleep apnea Not currently treated due to history of CPAP intolerance. [place] continue to have daytime tiredness, snoring and observed apneas in addition to frequent nocturnal arousals and nonrestorative sleep. At this point, I would recommend re-evaluation with an overnight sleep study due to the break in service for insurance, as well as to reassess the severity of his disease to see if alternative treatments, such as an oral appliance, would be still be an option for him. I explained the overnight sleep study in detail. A split night study will be ordered, but will order BiPAP to be placed due to his intolerance to CPAP despite pressure changes and many different mask fittings. He was agreeable to this plan. PLan to have him follow-up with Dr. Suarez after the study. Call in the meantime if any questions or concerns.
--- OUTSIDE RECORDS SUMMARY | 2017-03-13 09:25 | XMS REPORT | Referral Summary ---
Author Author [facility] Organization [facility] Address Unknown Phone Unavailable Care Team Providers Care Carpenter Supervisor Name Role Phone Teri Paul Primary Care Physician [phone] Encounter VC VI[facility]E [id number] Date(s): 12/16/16 - 12/16/16 [facility] [address], [place] [address] Discharge Disposition: 01-Home or Self Care Attending Physician: Ric Shukla JR, MD Vital Signs No data available for [...] GERD < 08/08/14 Resolved (gastroesophageal reflux disease)(Confirmed) [place] (hard of Active patient hearing)(Confirmed)1 Hypertension(Confirm Active [...] 0 Refill(s) Start Date: 12/16/16 Status: Ordered losartan-hydrochlorothiazide 50 mg-12.5 mg oral tablet 1 tabs, Oral, Daily, 0 Refill(s) Start Date: 12/16/16 Status: Ordered omeprazole 20 mg, Oral, Daily, 0 Refill(s) Start Date: 12/16/16 Status: Ordered Viagra 100 mg oral tablet 50 mg 0.5 tabs, Oral, Daily, as needed for erectile dysfunction, # 10 tabs, 5 Refill(s), Pharmacy: [facility] #[id number], 0.5 tabs Oral Daily,PRN:as needed for erectile dysfunction Start Date: 10/11/16 Status: Ordered Results No data available for this section Immunizations Given and Recorded Vaccine Date Status [...] Date Related Diagnosis Body Site Cystoscopy 04/25/13 Colonoscopy1 05/24/11 Colonoscopy 2004 Fusion of lumbar spine 1994 Right Inguinal hernia 1Neg 05-24-11, Recheck 2016 Social History Social History Type Response Smoking Status Never smoker Assessment and Plan No data available for this section
--- OUTSIDE RECORDS SUMMARY | 2017-03-13 09:25 | XMS REPORT | Referral Summary ---
Author Author [facility] Organization [facility] Address Unknown Phone Unavailable Care Team Providers Care Senior Materials Scientist Name Role Phone Teri Paul Primary Care Physician [phone] Encounter Date(s): 04/07/15 - 04/07/15 [facility], [address] [place] [address]- Discharge Diagnosis: Erectile dysfunction Discharge Diagnosis: Gastroesophageal [...] DAILY, # 90 tabs, 3 Refill(s), eRx: [facility] #[id number], TAKE ONE TABLET BY MOUTH DAILY Start Date: 05/27/15 Status: Ordered Hyzaar 50 mg-12.5 mg oral tablet See Instructions, TAKE ONE TABLET BY MOUTH EVERY DAY, # 30 tabs, 3 Refill(s), eRx: [facility] #[id number], TAKE ONE TABLET BY MOUTH EVERY DAY Start Date: 05/15/15 Status: Ordered omeprazole 20 mg oral delayed release capsule See Instructions, TAKE ONE CAPSULE BY MOUTH EVERY OTHER DAY, # 30 caps, 5 Refill(s), eRx: [facility] #[id number], TAKE ONE CAPSULE BY MOUTH EVERY DAY Start Date: 04/10/15 Status: Ordered Viagra 50 mg oral tablet See Instructions, TAKE ONE TABLET BY MOUTH EVERY DAY NEEDED, # 10 tabs, 1 Refill(s), eRx: [facility] #[id number], TAKE ONE TABLET BY MOUTH EVERY DAY [...] (04/07/15:20 AM) Trig [0-149 mg/dL] 138 mg/dL (04/07/15:20 AM) HDL [40-84 mg/dL] 45 mg/dL (04/07/15 9:20 AM) LDL [0-130 mg/dL] 148 mg/dL *HI* (04/07/15:20 AM) VLDL Cholesterol 28 mg/dL [0-28 mg/dL] [...] testing in 2010). Ordered: EKG with Interpretation [id number] Erectile dysfunction Gastroesophageal reflux disease Hand numbness [...]
--- OUTSIDE RECORDS SUMMARY | 2017-03-13 09:25 | XMS REPORT | Referral Summary ---
Author Author [facility] Organization [facility] Address Unknown Phone Unavailable Care Team Providers Care Community Engagement Coordinator Name Role Phone Teri Paul Primary Care Physician [phone] Encounter VC Date(s): 11/10/15 - 11/10/15 [facility], Audiology [address] [place] [address] [place] [address] - Discharge Disposition: 01-Home or Self Care Attending Physician: Adali Byrne Admitting Physician: Adali Byrne Referring Physician: Ivan Paul MD Vital Signs No data available for [...] DAILY, # 90 tabs, 3 Refill(s), eRx: [facility] #[id number], TAKE ONE TABLET BY MOUTH DAILY Start Date: 05/27/15 Status: Ordered Hyzaar 50 mg-12.5 mg oral tablet See Instructions, TAKE ONE TABLET BY MOUTH EVERY DAY, # 30 tabs, 3 Refill(s), eRx: [facility] #[id number], TAKE ONE TABLET BY MOUTH EVERY DAY Start Date: 05/15/15 Status: Ordered omeprazole 20 mg oral delayed release capsule See Instructions, TAKE ONE CAPSULE BY MOUTH EVERY OTHER DAY, # 30 caps, 5 Refill(s), eRx: [facility] #[id number], TAKE ONE CAPSULE BY MOUTH EVERY DAY Start Date: 04/10/15 Status: Ordered Viagra 50 mg oral tablet See Instructions, TAKE ONE TABLET BY MOUTH EVERY DAY NEEDED, # 10 tabs, 1 Refill(s), eRx: [facility] #[id number], TAKE ONE TABLET BY MOUTH EVERY DAY [...] spine 1994 Right Inguinal hernia 1DrJessica Puentes 2N 05-24-11, Recheck 2016 Social History Social History Type Response Smoking Status Never smoker Assessment and Plan No data available for this section
--- OUTSIDE RECORDS SUMMARY | 2017-03-13 09:25 | XMS REPORT | Referral Summary ---
Author Author [facility] Organization [facility] Address Unknown Phone Unavailable Care Team Providers Care Crate Builder Name Role Phone Teri Paul Primary Care Physician [phone] Encounter VC Date(s): 05/06/15 - 05/06/15 [facility], Urology [address] [place] [address] [place] [address]- Discharge Diagnosis: BPH Discharge Disposition: 01-Home or [...] DAILY, # 90 tabs, 3 Refill(s), eRx: [facility] #[id number], TAKE ONE TABLET BY MOUTH DAILY Start Date: 05/27/15 Status: Ordered Hyzaar 50 mg-12.5 mg oral tablet See Instructions, TAKE ONE TABLET BY MOUTH EVERY DAY, # 30 tabs, 3 Refill(s), eRx: [facility] #[id number], TAKE ONE TABLET BY MOUTH EVERY DAY Start Date: 05/15/15 Status: Ordered omeprazole 20 mg oral delayed release capsule See Instructions, TAKE ONE CAPSULE BY MOUTH EVERY DAY, # 30 caps, 5 Refill(s), eRx: [facility] #[id number], TAKE ONE CAPSULE BY MOUTH EVERY DAY Start Date: 04/10/15 Status: Ordered Viagra 50 mg oral tablet See Instructions, TAKE ONE TABLET BY MOUTH EVERY DAY NEEDED, # 10 tabs, 1 Refill(s), eRx: [facility] #[id number], TAKE ONE TABLET BY MOUTH EVERY DAY [...] Follow Up With: Where: When: Ivan Paul [address] [place] [address] Drive; [place] [address] Business (1) Within 3 to 5 days Comments: Follow Up With: Where: When: Mervin Esquivel [address] [place] [address] Drive; [place] [address] Business (1) In 1 year [...] counseling. Ordered: Office Visit Level 3 Est 00197
--- OUTSIDE RECORDS SUMMARY | 2017-03-13 09:25 | XMS REPORT | Referral Summary ---
Author Author [facility], Family Medicine Organization [facility] Address Unknown Phone Unavailable Care Team Providers Care Machine Operators Name Role Phone Teri Paul Primary Care Physician [phone] Encounter VC Date(s): 08/06/15 - 08/06/15 [facility], [address] [place] [address] Discharge Diagnosis: Left otitis media Discharge Disposition: 01-Home or Self Care Attending Physician: Chelsea Esquivel APRN Admitting Physician: Chelsea Esquivel APRN Vital Signs Most recent to 1 oldest [Reference Range]: Temperature Tympanic 36.4 degC [36.6-38.1 degC] *LOW* (08/06/15 10:06 AM) Peripheral Pulse 68 bpm Rate [60-100 bpm] (08/06/15 10:06 AM) Blood Pressure 142/84 mmHg [90-140/60-90 mmHg] *HI* (08/06/15 10:06 AM) SpO2 96 % (08/06/15 10:06 AM) Problem List Condition Effective Dates Status [...] # 90 tabs, 3 Refill(s), eRx: [facility] #[id number], TAKE ONE TABLET BY MOUTH DAILY Start Date: 05/27/15 Status: Ordered Hyzaar 50 mg-12.5 mg oral tablet See Instructions, TAKE ONE TABLET BY MOUTH EVERY DAY, # 30 tabs, 3 Refill(s), eRx: [facility] #[id number], TAKE ONE TABLET BY MOUTH EVERY DAY Start Date: 05/15/15 Status: Ordered omeprazole 20 mg oral delayed release capsule See Instructions, TAKE ONE CAPSULE BY MOUTH EVERY OTHER DAY, # 30 caps, 5 Refill(s), eRx: [facility] #[id number], TAKE ONE CAPSULE BY MOUTH EVERY DAY Start Date: 04/10/15 Status: Ordered Viagra 50 mg oral tablet See Instructions, TAKE ONE TABLET BY MOUTH EVERY DAY NEEDED, # 10 tabs, eRx: [facility] #[id number], TAKE ONE TABLET BY MOUTH EVERY DAY NEEDED Start Date: 12/29/15 Status: Ordered Results No data available for [...]
--- OUTSIDE RECORDS SUMMARY | 2017-03-13 09:26 | XMS REPORT | Referral Summary ---
Author Author [facility] Organization [facility] Address Unknown Phone Unavailable Care Team Providers Care Aviation Electronic Warfare Operator Name Role Phone Teri Paul Primary Care Physician [phone] Encounter Date(s): 05/19/15 - 05/19/15 [facility] [address] [facility] [address] [place], [place] [address] Discharge Diagnosis: Obstructive sleep apnea, [...] # 90 tabs, 3 Refill(s), eRx: [facility] #[id number], TAKE ONE TABLET BY MOUTH DAILY Start Date: 05/27/15 Status: Ordered Hyzaar 50 mg-12.5 mg oral tablet See Instructions, TAKE ONE TABLET BY MOUTH EVERY DAY, # 30 tabs, 3 Refill(s), eRx: [facility] #[id number], TAKE ONE TABLET BY MOUTH EVERY DAY Start Date: 05/15/15 Status: Ordered omeprazole 20 mg oral delayed release capsule See Instructions, TAKE ONE CAPSULE BY MOUTH EVERY OTHER DAY, # 30 caps, 5 Refill(s), eRx: [facility] #[id number], TAKE ONE CAPSULE BY MOUTH EVERY DAY Start Date: 04/10/15 Status: Ordered Viagra 50 mg oral tablet See Instructions, TAKE ONE TABLET BY MOUTH EVERY DAY NEEDED, # 10 tabs, 1 Refill(s), eRx: [facility] #[id number], TAKE ONE TABLET BY MOUTH EVERY DAY [...]
--- OUTSIDE RECORDS SUMMARY | 2017-03-13 09:26 | XMS REPORT | Referral Summary ---
Author Author [facility], Family Medicine Organization [facility] Address Unknown Phone Unavailable Care Team Providers Care Automation And Control Engineer Name Role Phone Teri Paul Primary Care Physician [phone] Encounter VC Date(s): 10/11/16 - 10/11/16 [facility], [address] [place] [address]- Discharge Diagnosis: Hearing deficit Discharge Diagnosis: Gastroesophageal reflux disease Discharge Diagnosis: Benign essential hypertension Discharge Diagnosis: Nocturnal leg cramps Discharge Diagnosis: BPH with obstruction/lower urinary tract symptoms Discharge Disposition: 01-Home or Self Care Attending Physician: Ivan Paul MD Admitting Physician: Ivan Paul MD Vital Signs Most recent to 1 oldest [Reference Range]: Peripheral Pulse 62 bpm Rate [60-100 bpm] (10/11/16 8:33 AM) Respiratory Rate 16 br/min [14-20 br/min] (10/11/16 8:33 AM) Blood Pressure 138/66 mmHg [90-140/60-90 mmHg] (10/11/16 8:33 AM) SpO2 95 % (10/11/16 8:33 AM) Problem List Condition Effective Dates Status [...] TABLET BY MOUTH DAILY, # 90 tabs, 1 Refill(s), Pharmacy: [facility] #[id number], To be picked up in about 30 days when current supply expires, TAKE ONE TABLET BY MOUTH DAILY Start Date: 10/11/16 Status: Ordered losartan-hydrochlorothiazide 50 mg-12.5 mg oral tablet See Instructions, TAKE ONE TABLET BY MOUTH DAILY, # 30 tabs, 5 Refill(s), eRx: [facility] #[id number], TAKE ONE TABLET BY MOUTH DAILY Start Date: 04/27/16 Status: Ordered omeprazole 20 mg oral delayed release capsule See Instructions, TAKE ONE CAPSULE BY MOUTH EVERY DAY, # 30 caps, 5 Refill(s), eRx: [facility] #[id number], TAKE ONE CAPSULE BY MOUTH EVERY DAY Start Date: 08/30/16 Status: Ordered Viagra 100 mg oral tablet 50 mg 0.5 tabs, Oral, Daily, as needed for erectile dysfunction, # 10 tabs, 5 Refill(s), Pharmacy: [facility] #[id number], 0.5 tabs Oral Daily,PRN:as needed for erectile dysfunction Start Date: 10/11/16 Status: Ordered Results Chemistry Most recent to 1 oldest [Reference Range]: Sodium Lvl [135-144 140 mEq/L mEq/L] (10/11/16 9:20 AM) Potassium Lvl 4.4 mEq/L [3.5-5.2 mEq/L] (10/11/16 9:20 AM) Chloride [99-111 103 mEq/L mEq/L] (10/11/16 9:20 AM) CO2 [23-31 mEq/L] 29 mEq/L (10/11/16 9:20 AM) AGAP [3-20] 8 (10/11/16 9:20 AM) BUN [8-26 mg/dL] 19 mg/dL (10/11/16 9:20 AM) Glucose Lvl [70-99 87 mg/dL mg/dL] (10/11/16 9:20 AM) Creatinine Lvl 0.78 mg/dL [0.72-1.25 mg/dL] (10/11/16 9:20 AM) eGFR [>60 mL/min] >60 mL/min 1 (10/11/16 9:20 AM) Calcium Lvl 8.9 mg/dL [8.9-10.5 mg/dL] (10/11/16 9:20 AM) 1Result Comment: Multiply eGFR results by 1.21 for race. Immunizations Vaccine Date Refusal Reason influenza virus vaccine, inactivated 09/15/16 influenza virus vaccine, inactivated 09/20/15 influenza virus [...] smoker Assessment and Plan Extracted from: Title: CDM Author: Ivan Paul MD Date: 10/11/16 Impression and Plan Diagnosis Benign essential hypertension ([id number] I10, Discharge, Medical). Hearing deficit (ILO87-YG H91.90, Discharge, Medical). Nocturnal leg cramps (XVX17-YN G47.62, Discharge, Medical). BPH with obstruction/lower urinary tract symptoms (POV61-PZ N40.1, Discharge, Medical). Gastroesophageal reflux disease (KKG37-HM K21.9, Discharge, Medical). Orders Orders (Selected) Outpatient Orders Future (On Hold) BMP: Prescriptions Prescribed Viagra 100 mg oral tablet: 50 mg=0.5 tabs, Oral, Daily, PRN: as needed for erectile dysfunction, 10 tabs, 5 Refill(s) finasteride 5 mg oral tablet: See Instructions, TAKE ONE TABLET BY MOUTH DAILY, 90 tabs, 1 Refill(s) omeprazole 20 mg oral delayed release capsule: See Instructions, TAKE ONE CAPSULE BY MOUTH EVERY DAY, 30 caps, 5 Refill(s).
--- OUTSIDE RECORDS SUMMARY | 2017-03-13 09:26 | XMS REPORT | Referral Summary ---
Author Author [facility] Organization [facility] Address Unknown Phone Unavailable Care Team Providers Care Family Physician Name Role Phone Teri Paul Primary Care Physician [phone] Encounter VC Date(s): 05/06/15 - 05/06/15 [facility], Cardiology [address] [place] [address] [place] [address]- Discharge Diagnosis: Chest pain Discharge Diagnosis: Dyslipidemia Discharge Diagnosis: Sleep apnea Discharge Diagnosis: Hypertension Discharge Disposition: 01-Home or Self Care Attending Physician: Ramakrishna Lester MD Admitting Physician: Ramakrishna Lester MD Referring Physician: Ivan Paul MD Vital Signs Most recent to 1 oldest [Reference Range]: Peripheral Pulse 64 bpm Rate [60-100 bpm] (05/06/15 1:18 PM) Blood Pressure 138/80 mmHg [90-140/60-90 mmHg] (05/06/15 1:18 PM) Problem List Condition Effective Dates Status [...] DAILY, # 90 tabs, 3 Refill(s), eRx: [facility] #[id number], TAKE ONE TABLET BY MOUTH DAILY Start Date: 05/27/15 Status: Ordered Hyzaar 50 mg-12.5 mg oral tablet See Instructions, TAKE ONE TABLET BY MOUTH EVERY DAY, # 30 tabs, 3 Refill(s), eRx: [facility] #[id number], TAKE ONE TABLET BY MOUTH EVERY DAY Start Date: 05/15/15 Status: Ordered omeprazole 20 mg oral delayed release capsule See Instructions, TAKE ONE CAPSULE BY MOUTH EVERY OTHER DAY, # 30 caps, 5 Refill(s), eRx: [facility] #[id number], TAKE ONE CAPSULE BY MOUTH EVERY DAY Start Date: 04/10/15 Status: Ordered Viagra 50 mg oral tablet See Instructions, TAKE ONE TABLET BY MOUTH EVERY DAY NEEDED, # 10 tabs, 1 Refill(s), eRx: [facility] #[id number], TAKE ONE TABLET BY MOUTH EVERY DAY [...]
--- OUTSIDE RECORDS SUMMARY | 2017-03-13 09:26 | XMS REPORT | Continuity of Care Document ---
Author Author [facility] Organization [facility] Address Unknown Phone Unavailable Allergies Active Description Code Type Severity Reaction Onset Reported/Identified Relationship to Patient Clinical Status Yes No Known Medication Allergies NKMA N/A N/A 05/07/2014 Medications Problems Procedures Results Encounters ACCT No. Visit Date/Time Discharge Status Pt. Type Provider Facility Loc./Unit Complaint [id number] 12/07/2013 08:30:00 12/07/2013 23 :59:59 [facility] Outpatient [id number] 11/02/2013 14:58:00 11/02/2013 23 :59:59 [facility] Outpatient [id number] 11/02/2013 09:32:00 11/02/2013 23 :59:59 [facility] Outpatient
--- OUTSIDE RECORDS SUMMARY | 2017-03-13 09:26 | XMS REPORT | Referral Summary ---
Author Author [facility], Family Medicine Organization [facility] Address Unknown Phone Unavailable Care Team Providers Care Tour Production Supervisor Name Role Phone Teri Paul Primary Care Physician [phone] Encounter Date(s): 04/07/15 - 04/07/15 [facility], [address] [place] [address]- Discharge Diagnosis: Erectile dysfunction Discharge Diagnosis: Gastroesophageal [...] [facility] #[id number], TAKE ONE TABLET BY MOUTH DAILY Start Date: 05/27/15 Status: Ordered Hyzaar 50 mg-12.5 mg oral tablet See Instructions, TAKE ONE TABLET BY MOUTH EVERY DAY, # 30 tabs, 3 Refill(s), eRx: [facility] #[id number], TAKE ONE TABLET BY MOUTH EVERY DAY Start Date: 05/15/15 Status: Ordered omeprazole 20 mg oral delayed release capsule See Instructions, TAKE ONE CAPSULE BY MOUTH EVERY DAY, # 30 caps, 5 Refill(s), eRx: [facility] #[id number], TAKE ONE CAPSULE BY MOUTH EVERY DAY Start Date: 04/10/15 Status: Ordered Viagra 50 mg oral tablet See Instructions, TAKE ONE TABLET BY MOUTH EVERY DAY NEEDED, # 10 tabs, 1 Refill(s), eRx: [facility] #[id number], TAKE ONE TABLET BY MOUTH EVERY DAY [...] testing in 2010). Ordered: EKG with Interpretation [id number] Erectile dysfunction Gastroesophageal reflux disease Hand numbness [...]
--- OUTSIDE RECORDS SUMMARY | 2017-03-13 09:26 | XMS REPORT | Referral Summary ---
Author Author [facility] Organization [facility] Address Unknown Phone Unavailable Care Team Providers Care Flight Deck Officer Name Role Phone Teri Paul Primary Care Physician [phone] Encounter VC Date(s): 05/06/15 - 05/06/15 [facility], Urology [address] [place] [address] [place] [address]- Discharge Diagnosis: BPH Discharge Disposition: 01-Home or [...] # 90 tabs, 3 Refill(s), eRx: [facility] #[id number], TAKE ONE TABLET BY MOUTH DAILY Start Date: 05/27/15 Status: Ordered Hyzaar 50 mg-12.5 mg oral tablet See Instructions, TAKE ONE TABLET BY MOUTH EVERY DAY, # 30 tabs, 3 Refill(s), eRx: [facility] #[id number], TAKE ONE TABLET BY MOUTH EVERY DAY Start Date: 05/15/15 Status: Ordered omeprazole 20 mg oral delayed release capsule See Instructions, TAKE ONE CAPSULE BY MOUTH EVERY DAY, # 30 caps, 5 Refill(s), eRx: [facility] #[id number], TAKE ONE CAPSULE BY MOUTH EVERY DAY Start Date: 04/10/15 Status: Ordered Viagra 50 mg oral tablet See Instructions, TAKE ONE TABLET BY MOUTH EVERY DAY NEEDED, # 10 tabs, 1 Refill(s), eRx: [facility] #[id number], TAKE ONE TABLET BY MOUTH EVERY DAY [...] Follow Up With: Where: When: Ivan Paul [address] [place] [address] Drive; [place] [address] Business (1) Within 3 to 5 days Comments: Follow Up With: Where: When: Mervin Esquivel [address] [place] [address] Drive; [place] [address] Business (1) In 1 year [...] counseling. Ordered: Office Visit Level 3 Est 80218
--- OUTSIDE RECORDS SUMMARY | 2017-03-13 09:26 | XMS REPORT | Referral Summary ---
Author Author [facility] Organization [facility] Address Unknown Phone Unavailable Care Team Providers Care Experimental Psychologist Name Role Phone Beverly Teri Primary Care Physician [phone] Encounter Date(s): 05/21/15 - 05/21/15 [facility] [address], [place] [email or web address] Discharge Disposition: 01-Home or Self Care Attending [...] DAILY, # 90 tabs, 3 Refill(s), eRx: [facility] #[id number], TAKE ONE TABLET BY MOUTH DAILY Start Date: 05/27/15 Status: Ordered Hyzaar 50 mg-12.5 mg oral tablet See Instructions, TAKE ONE TABLET BY MOUTH EVERY DAY, # 30 tabs, 3 Refill(s), eRx: [facility] #[id number], TAKE ONE TABLET BY MOUTH EVERY DAY Start Date: 05/15/15 Status: Ordered omeprazole 20 mg oral delayed release capsule See Instructions, TAKE ONE CAPSULE BY MOUTH EVERY OTHER DAY, # 30 caps, 5 Refill(s), eRx: [facility] #[id number], TAKE ONE CAPSULE BY MOUTH EVERY DAY Start Date: 04/10/15 Status: Ordered Viagra 50 mg oral tablet See Instructions, TAKE ONE TABLET BY MOUTH EVERY DAY NEEDED, # 10 tabs, 1 Refill(s), eRx: [facility] #[id number], TAKE ONE TABLET BY MOUTH EVERY DAY [...]
--- OUTSIDE RECORDS SUMMARY | 2017-03-13 09:26 | XMS REPORT | Referral Summary ---
Author Author [facility] Organization [facility] Address Unknown Phone Unavailable Care Team Providers Care Licensed Mental Health Counselor Name Role Phone Teri Paul Primary Care Physician [phone] Encounter Date(s): 06/30/15 - 06/30/15 [facility] [place] [address] [facility] [address] [place], [place] [address] Discharge Diagnosis: Obstructive sleep apnea, adult Discharge [...] Refill(s), eRx: [facility] #[id number], TAKE ONE TABLET BY MOUTH DAILY Start Date: 05/27/15 Status: Ordered Hyzaar 50 mg-12.5 mg oral tablet See Instructions, TAKE ONE TABLET BY MOUTH EVERY DAY, # 30 tabs, 3 Refill(s), eRx: [facility] #[id number], TAKE ONE TABLET BY MOUTH EVERY DAY Start Date: 05/15/15 Status: Ordered omeprazole 20 mg oral delayed release capsule See Instructions, TAKE ONE CAPSULE BY MOUTH EVERY OTHER DAY, # 30 caps, 5 Refill(s), eRx: [facility] #[id number], TAKE ONE CAPSULE BY MOUTH EVERY DAY Start Date: 04/10/15 Status: Ordered Viagra 50 mg oral tablet See Instructions, TAKE ONE TABLET BY MOUTH EVERY DAY NEEDED, # 10 tabs, eRx: [facility] #[id number], TAKE ONE TABLET BY MOUTH EVERY DAY [...]
--- OUTSIDE RECORDS SUMMARY | 2017-03-13 09:27 | XMS REPORT | Referral Summary ---
Author Author [facility] Organization [facility] Address Unknown Phone Unavailable Care Team Providers Care Furnace Operator And Tender Name Role Phone Teri Paul Primary Care Physician [phone] Encounter Date(s): 04/07/15 - 04/07/15 [facility], [address] [place] [address]- Discharge Diagnosis: Erectile dysfunction Discharge Diagnosis: Gastroesophageal [...] DAILY, # 90 tabs, 3 Refill(s), eRx: [facility] #[id number], TAKE ONE TABLET BY MOUTH DAILY Start Date: 05/27/15 Status: Ordered Hyzaar 50 mg-12.5 mg oral tablet See Instructions, TAKE ONE TABLET BY MOUTH EVERY DAY, # 30 tabs, 3 Refill(s), eRx: [facility] #[id number], TAKE ONE TABLET BY MOUTH EVERY DAY Start Date: 05/15/15 Status: Ordered omeprazole 20 mg oral delayed release capsule See Instructions, TAKE ONE CAPSULE BY MOUTH EVERY DAY, # 30 caps, 5 Refill(s), eRx: [facility] #[id number], TAKE ONE CAPSULE BY MOUTH EVERY DAY Start Date: 04/10/15 Status: Ordered Viagra 50 mg oral tablet See Instructions, TAKE ONE TABLET BY MOUTH EVERY DAY NEEDED, # 10 tabs, 1 Refill(s), eRx: [facility] #[id number], TAKE ONE TABLET BY MOUTH EVERY DAY [...] testing in 2010). Ordered: EKG with Interpretation [id number] Erectile dysfunction Gastroesophageal reflux disease Hand numbness [...]
--- OUTSIDE RECORDS SUMMARY | 2017-03-13 09:27 | XMS REPORT | Referral Summary ---
Author Author [facility] Organization [facility] Address Unknown Phone Unavailable Care Team Providers Care Electrical Systems Design Engineer Name Role Phone Teri Paul Primary Care Physician [phone] Encounter Date(s): 04/07/15 - 04/07/15 [facility], [address] [place] [address]- Discharge Diagnosis: Erectile dysfunction Discharge Diagnosis: Gastroesophageal [...] DAILY, # 90 tabs, 3 Refill(s), eRx: [facility] #[id number], TAKE ONE TABLET BY MOUTH DAILY Start Date: 05/27/15 Status: Ordered Hyzaar 50 mg-12.5 mg oral tablet See Instructions, TAKE ONE TABLET BY MOUTH EVERY DAY, # 30 tabs, 3 Refill(s), eRx: [facility] #[id number], TAKE ONE TABLET BY MOUTH EVERY DAY Start Date: 05/15/15 Status: Ordered omeprazole 20 mg oral delayed release capsule See Instructions, TAKE ONE CAPSULE BY MOUTH EVERY DAY, # 30 caps, 5 Refill(s), eRx: [facility] #[id number], TAKE ONE CAPSULE BY MOUTH EVERY DAY Start Date: 04/10/15 Status: Ordered Viagra 50 mg oral tablet See Instructions, TAKE ONE TABLET BY MOUTH EVERY DAY NEEDED, # 10 tabs, 1 Refill(s), eRx: [facility] #[id number], TAKE ONE TABLET BY MOUTH EVERY DAY [...] testing in 2010). Ordered: EKG with Interpretation [id number] Erectile dysfunction Gastroesophageal reflux disease Hand numbness [...]
--- OUTSIDE RECORDS SUMMARY | 2017-03-13 09:27 | XMS REPORT | Referral Summary ---
Author Author [facility] Organization [facility] Address Unknown Phone Unavailable Care Team Providers Care Cargo And Container Inspector Name Role Phone Teri Paul Primary Care Physician [phone] Encounter VC Date(s): 05/06/15 - 05/06/15 [facility] [address] [place] [address] LAURE Pacheco [address]- Discharge Diagnosis: BPH Discharge Disposition: 01-Home or [...] DAILY, # 90 tabs, 3 Refill(s), eRx: [facility] #[id number], TAKE ONE TABLET BY MOUTH DAILY Start Date: 05/27/15 Status: Ordered Hyzaar 50 mg-12.5 mg oral tablet See Instructions, TAKE ONE TABLET BY MOUTH EVERY DAY, # 30 tabs, 3 Refill(s), eRx: [facility] #[id number], TAKE ONE TABLET BY MOUTH EVERY DAY Start Date: 05/15/15 Status: Ordered omeprazole 20 mg oral delayed release capsule See Instructions, TAKE ONE CAPSULE BY MOUTH EVERY DAY, # 30 caps, 5 Refill(s), eRx: [facility] #[id number], TAKE ONE CAPSULE BY MOUTH EVERY DAY Start Date: 04/10/15 Status: Ordered Viagra 50 mg oral tablet See Instructions, TAKE ONE TABLET BY MOUTH EVERY DAY NEEDED, # 10 tabs, 1 Refill(s), eRx: [facility] #[id number], TAKE ONE TABLET BY MOUTH EVERY DAY [...] Follow Up With: Where: When: Ivan Paul [address] [place] [address] Drive; [place] [address] Business (1) Within 3 to 5 days Comments: Follow Up With: Where: When: Mervin Esquivel [address] [place] [address] Drive; [place] [address] Business (1) In 1 year [...] counseling. Ordered: Office Visit Level 3 Est 77434
--- OUTSIDE RECORDS SUMMARY | 2017-03-13 09:27 | XMS REPORT | Referral Summary ---
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 Discharge Diagnosis: Xerosis of skin Discharge Diagnosis: Seborrheic keratosis Discharge Disposition: 01-Home or Self Care Attending Physician: Gage Lee MD Admitting Physician: Gage Lee MD Referring Physician: Ivan Paul MD Vital [...] # 90 tabs, 3 Refill(s), eRx: [facility] #[id number], TAKE ONE TABLET BY MOUTH DAILY Start Date: 05/27/15 Status: Ordered Hyzaar 50 mg-12.5 mg oral tablet See Instructions, TAKE ONE TABLET BY MOUTH DAILY, # 30 tabs, 1 Refill(s), eRx: [facility] #[id number], TAKE ONE TABLET BY MOUTH DAILY Start Date: 02/23/16 Status: Ordered omeprazole 20 mg oral delayed release capsule See Instructions, TAKE ONE CAPSULE BY MOUTH EVERY DAY, # 30 caps, 1 Refill(s), eRx: [facility] #[id number], TAKE ONE CAPSULE BY MOUTH EVERY DAY Start Date: 02/23/16 Status: Ordered Viagra 50 mg oral tablet See Instructions, TAKE ONE TABLET BY MOUTH EVERY DAY NEEDED, # 10 tabs, eRx: [facility] #[id number], TAKE ONE TABLET BY MOUTH EVERY DAY [...] Extracted from: Title: Office Visit Note Author: Gage Lee MD Date: 03/03/16 Assessment/Plan Capillary hemangioma Seborrheic keratosis Seborrheic keratosis, inflamed Solar degeneration Xerosis of skin
--- OUTSIDE RECORDS SUMMARY | 2017-03-13 09:27 | XMS REPORT | Continuity of Care Document ---
Author Author Meliza Leija MA [facility] Address [address] [place] [address] Phone Care Team Providers Care Production Officer Name Role Phone Ivan Paul PP Unavailable Payers Payer name Insurance type Covered democrat ID Authorization(s) Unknown Problems Condition Effective Dates (start - stop) Clinical Status Cough - *Resolved Hypertension, Benign - *Fair Control Sleep Apnea, Obstructive - *Symptomatic BPH - *Controlled Hypertension, Benign - *Controlled [...] ESOPHAGEAL REFLUX - Hypertension, Benign - *Chronic Hypertension, Benign - *Chronic Hypertension, Benign - Chronic Sleep Apnea, Obstructive - *Fair Control Family History Family Member Diagnosis Age At Onset Status Mother (Unknown) CAD Yes Father (Unknown) Alzheimer's Disease Yes Paternal aunt (Unknown) Alzheimer's Disease Yes Paternal uncle (Unknown) Alzheimer's Disease Yes Social History Social History Element Description Quantity alcohol beer 3 drinks Allergies, Adverse Reactions, Alerts Substance Reaction Severity Status Unknown Medications Medication Instructions Dosage Effective Dates (start - stop) Status losartan 50 mg-hydrochlorothiazide 12.5 mg tablet take 1 tablet by oral route every day 0 - Active Prilosec 20 mg capsule,delayed release Take 1 by mouth every day. 2012 - Active Viagra 50 mg tablet Take 1 by mouth every day as needed. - Active finasteride 5 mg tablet take 1 tablet (5MG) by oral route every day 5 MG - Active losartan 50 mg tablet take 1 tablet (50MG) by oral route every day 50 MG - No Longer Active inhale 9 CM by Nasal route every bedtime 0 - Active Immunizations Vaccine Date Status Comments flu (split) (3 yrs or older) completed - Completed reason: public agency flu (split) (3 yrs or older) completed - Completed reason: other provider Results Test Name Date and Time Measure Units Reference Range Abnormal Flag Comments Unknown Vital Signs Date / Time: Height Weight Pulse Rate Blood Pressure Temperature /:33:00 66.50 in 202.00 lbs 150/80 mm[Hg] /:37:00 68 /min 160/88 mm[Hg] Procedures Procedure Date Unknown Encounters Encounter Location Date Patient Visit [facility] Patient Visit [facility] Patient Visit [facility] Patient Visit [facility] Patient Visit [facility] Patient Visit [facility] Patient Visit [facility] Patient Visit [facility] Patient Visit [facility] Patient Visit [facility] Patient Visit [facility] Patient Visit [facility] Patient Visit [facility] Patient Visit [facility] Patient Visit [facility] Patient Visit [facility] Patient Visit [facility] Advance Directives Directive Effective Date Unknown
--- OUTSIDE RECORDS SUMMARY | 2017-03-13 09:27 | XMS REPORT | Referral Summary ---
Author Author [facility] Organization [facility] Address Unknown Phone Unavailable Care Team Providers Care Registered Nurse Ambulatory Name Role Phone Teri Paul Primary Care Physician [phone] Encounter VC Date(s): 05/06/15 - 05/06/15 [facility] [address] [place] [address] [place] Pacheco [address]- Discharge Diagnosis: BPH Discharge Disposition: 01-Home or [...] 3 Refill(s), eRx: [facility] #[id number], TAKE ONE TABLET BY MOUTH DAILY Start Date: 05/27/15 Status: Ordered Hyzaar 50 mg-12.5 mg oral tablet See Instructions, TAKE ONE TABLET BY MOUTH EVERY DAY, # 30 tabs, 3 Refill(s), eRx: [facility] #[id number], TAKE ONE TABLET BY MOUTH EVERY DAY Start Date: 05/15/15 Status: Ordered omeprazole 20 mg oral delayed release capsule See Instructions, TAKE ONE CAPSULE BY MOUTH EVERY OTHER DAY, # 30 caps, 5 Refill(s), eRx: [facility] #[id number], TAKE ONE CAPSULE BY MOUTH EVERY DAY Start Date: 04/10/15 Status: Ordered Viagra 50 mg oral tablet See Instructions, TAKE ONE TABLET BY MOUTH EVERY DAY NEEDED, # 10 tabs, 1 Refill(s), eRx: [facility] #[id number], TAKE ONE TABLET BY MOUTH EVERY DAY [...] lumbar spine 1994 Right Inguinal hernia 1Dr. rey 2Neg 05-24-11, Recheck 2016 Social History Social History Type Response Smoking Status Never smoker Assessment and Plan Extracted from: Title: Ambulatory Patient Education Author: Mervin Esquivel JR, MD Date : 05/06/15 Follow Up With: Where: When: Ivan Paul [address] [place] [address] Drive; [place] [address] Business (1) Within 3 to 5 days Comments: Follow Up With: Where: When: Mervin Robin[address]; [place] [address] Business (1) In 1 year 05/06/2016 Comments: [...] counseling. Ordered: Office Visit Level 3 Est 46176
--- OUTSIDE RECORDS SUMMARY | 2017-03-13 09:27 | XMS REPORT | Referral Summary ---
Author Author [facility] Organization [facility] Address Unknown Phone Unavailable Care Team Providers Care Bagging Salvager Name Role Phone Teri Paul Primary Care Physician [phone] Encounter VC Date(s): 05/06/15 - 05/06/15 [facility] [address] [place] [address] [place] Pache[place] [address]- Discharge Diagnosis: BPH Discharge Disposition: 01-Home or [...] DAILY, # 90 tabs, 3 Refill(s), eRx: [facility] #[id number], TAKE ONE TABLET BY MOUTH DAILY Start Date: 05/27/15 Status: Ordered Hyzaar 50 mg-12.5 mg oral tablet See Instructions, TAKE ONE TABLET BY MOUTH EVERY DAY, # 30 tabs, 3 Refill(s), eRx: [facility] #[id number], TAKE ONE TABLET BY MOUTH EVERY DAY Start Date: 05/15/15 Status: Ordered omeprazole 20 mg oral delayed release capsule See Instructions, TAKE ONE CAPSULE BY MOUTH EVERY DAY, # 30 caps, 5 Refill(s), eRx: [facility] #[id number], TAKE ONE CAPSULE BY MOUTH EVERY DAY Start Date: 04/10/15 Status: Ordered Viagra 50 mg oral tablet See Instructions, TAKE ONE TABLET BY MOUTH EVERY DAY NEEDED, # 10 tabs, 1 Refill(s), eRx: [facility] #[id number], TAKE ONE TABLET BY MOUTH EVERY DAY [...] Follow Up With: Where: When: Ivan Paul [address] [place] [address] Drive; [place] [address] Business (1) Within 3 to 5 days Comments: Follow Up With: Where: When: Mervin Esquivel [address] [place] [address] Drive; [place] [address] Business (1) In 1 year [...] counseling. Ordered: Office Visit Level 3 Est [address]
--- OUTSIDE RECORDS SUMMARY | 2017-03-13 09:27 | XMS REPORT | Referral Summary ---
Author Author [facility] Organization [facility] Address Unknown Phone Unavailable Care Team Providers Care Financial Planner Name Role Phone Teri Paul Primary Care Physician [phone] Encounter Date(s): 05/19/15 - 05/19/15 [facility] [address] [facility], [facility] [address] [place], [place] [address] Discharge Diagnosis: Obstructive sleep apnea, adult [...] DAILY, # 90 tabs, 3 Refill(s), eRx: [facility] #[id number], TAKE ONE TABLET BY MOUTH DAILY Start Date: 05/27/15 Status: Ordered Hyzaar 50 mg-12.5 mg oral tablet See Instructions, TAKE ONE TABLET BY MOUTH EVERY DAY, # 30 tabs, 3 Refill(s), eRx: [facility] #[id number], TAKE ONE TABLET BY MOUTH EVERY DAY Start Date: 05/15/15 Status: Ordered omeprazole 20 mg oral delayed release capsule See Instructions, TAKE ONE CAPSULE BY MOUTH EVERY OTHER DAY, # 30 caps, 5 Refill(s), eRx: [facility] #[id number], TAKE ONE CAPSULE BY MOUTH EVERY DAY Start Date: 04/10/15 Status: Ordered Viagra 50 mg oral tablet See Instructions, TAKE ONE TABLET BY MOUTH EVERY DAY NEEDED, # 10 tabs, 1 Refill(s), eRx: [facility] #[id number], TAKE ONE TABLET BY MOUTH EVERY DAY [...]
--- OUTSIDE RECORDS SUMMARY | 2017-03-13 09:27 | XMS REPORT | Referral Summary ---
Author Author [facility] Organization [facility] Address Unknown Phone Unavailable Care Team Providers Care Vamper Name Role Phone Teri Paul Primary Care Physician [phone] Encounter VC Date(s): 05/06/15 - 05/06/15 [facility] [address] [place] [address] [place] [id number]- Discharge Diagnosis: BPH Discharge Disposition: 01-Home or [...] # 90 tabs, 3 Refill(s), eRx: [facility] #[id number], TAKE ONE TABLET BY MOUTH DAILY Start Date: 05/27/15 Status: Ordered Hyzaar 50 mg-12.5 mg oral tablet See Instructions, TAKE ONE TABLET BY MOUTH EVERY DAY, # 30 tabs, 3 Refill(s), eRx: [facility] #[id number], TAKE ONE TABLET BY MOUTH EVERY DAY Start Date: 05/15/15 Status: Ordered omeprazole 20 mg oral delayed release capsule See Instructions, TAKE ONE CAPSULE BY MOUTH EVERY DAY, # 30 caps, 5 Refill(s), eRx: [facility] #[id number], TAKE ONE CAPSULE BY MOUTH EVERY DAY Start Date: 04/10/15 Status: Ordered Viagra 50 mg oral tablet See Instructions, TAKE ONE TABLET BY MOUTH EVERY DAY NEEDED, # 10 tabs, 1 Refill(s), eRx: [facility] #[id number], TAKE ONE TABLET BY MOUTH EVERY DAY [...] Follow Up With: Where: When: Ivan Paul [address] [place] [address] Drive; [place] [address] Business (1) Within 3 to 5 days Comments: Follow Up With: Where: When: Mervin Esquivel [address] [place] [address] Drive; [place] [address] Business (1) In 1 year [...] counseling. Ordered: Office Visit Level 3 Est 91768
--- OUTSIDE RECORDS SUMMARY | 2017-03-13 09:27 | XMS REPORT | Continuity of Care Document ---
Author Author Will Andersen [facility], [facility] Address Unknown Phone Unavailable Care Team Providers Care Lacemaker Name Role Phone Ivan Paul PP Unavailable Payers Payer name Insurance type Covered democrat ID Authorization(s) Unknown Problems Condition Effective Dates (start - stop) Clinical Status BPH - *Controlled Hypertension, Unspecified - *Controlled Sleep Apnea, Obstructive - *Symptomatic Cough - *Resolved Hypertension, Benign - *Fair Control BPH - *Controlled Hypertension, Benign - *Controlled Sleep Apnea, Obstructive - *Chronic Depression - *Resolved Hypercholesterolemia - *Controlled GERD - *Controlled Benign neoplasm of colon - *Resolved Muscle cramps - Intermittent Alcohol abuse - *Chronic HEMATURIA NOS - *Acute Hypertension, Benign - *Acute Sleep Apnea - *Chronic Hypertension, Benign - [...] Height Weight Pulse Rate Blood Pressure Temperature /14:59:00 66.50 in 202.00 lbs 68 /min 160/80 mm[Hg] Procedures Procedure Date Unknown Encounters Encounter Location Date Patient Visit [facility] Patient Visit [facility] Patient Visit [facility] Patient Visit [facility] Patient Visit [facility] Patient Visit [facility] Patient Visit [facility] Patient Visit [facility] Patient Visit [facility] Patient Visit [facility] Patient Visit [facility] Patient Visit [facility] Patient Visit [facility] Patient Visit [facility] Patient Visit [facility] Patient Visit [facility] Patient Visit [facility] Advance Directives Directive Effective Date Unknown
[2017-03-13] MEDS ORDERED: NORMAL SALINE 1,000 ML IV ONE (09:34)
[2017-03-13 09:43] LABS: BASOPHILS # (AUTO) 0.1 T/MM3 (0-0.2); BASOPHILS % (AUTO) 0.9 % (0-2); EOSINOPHILS # (AUTO) 0.1 T/MM3 (0-0.5); EOSINOPHILS % (AUTO) 2.2 % (0-4); HCT - HEMATOCRIT 46.8 % (41-53); HGB - HEMOGLOBIN 16.2 GM/DL (13.5-17.5); IMMATURE GRANULOCYTE # (AUTO) 0.01 T/MM3 (0.00-0.03); IMMATURE GRANULOCYTE % (AUTO) 0.2 % (0.0-0.5); LYMPHOCYTES # (AUTO) 1.6 T/MM3 (1-4.8); LYMPHOCYTES % (AUTO) 26.4 % (23-45); MEAN CORPUSCULAR HGB 31.6 UUG (26-34); MEAN CORPUSCULAR HGB CONC(MCHC 34.6 GM/DL (31-37); MEAN CORPUSCULAR VOLUME 91.2 UM3 (80-100); MEAN PLATELET VOLUME 9.5 UM3 (9.4-12.4); MONOCYTES # (AUTO) 0.3 T/MM3 (0-0.8); MONOCYTES % (AUTO) 4.8 % (0-9.0); NEUTROPHILS #(AUTO)-ABSOLUTE 3.9 T/MM3 (1.8-7.7); NEUTROPHILS % (AUTO) 65.5 % (33-66); RED BLOOD COUNT 5.13 M/MM3 (4.50-5.90); WBC - WHITE BLOOD COUNT 5.9 T/MM3 (4.5-11.0)
--- OUTSIDE RECORDS SUMMARY | 2017-03-13 09:44 | XMS REPORT | Continuity of Care Document ---
Author Author [facility] Organization [facility] Address Unknown Phone Unavailable Allergies Active Description Code Type Severity Reaction Onset Reported/Identified Relationship to Patient Clinical Status Yes No Known Medication Allergies NKMA N/A N/A 05/07/2014 Medications Problems Procedures Results Encounters ACCT No. Visit Date/Time Discharge Status Pt. Type Provider Facility Loc./Unit Complaint [id number] 12/07/2013 08:30:00 12/07/2013 23 :59:59 [facility] Outpatient [id number] 11/02/2013 14:58:00 11/02/2013 23 :59:59 [facility] Outpatient [id number] 11/02/2013 09:32:00 11/02/2013 23 :59:59 [facility] Outpatient
[2017-03-13] MEDS ORDERED: NITROGLYCERIN 0.4 MG SUBLINGUAL TABLET SL PRN (09:45)
[2017-03-13] MEDS ORDERED: KETOROLAC 30mg/ml INJECTION IV ONE (09:45)
[2017-03-13] MEDS ORDERED: ONDANSETRON 4mg/2ml INJECTION IV ONE (09:45)
[2017-03-13] MEDS ORDERED: ASPIRIN 81 MG CHEWABLE TABLET PO ONE (09:45)
[2017-03-13 09:50] LABS: ALBUMIN 4.1 G/DL (3.5-5.0); ALBUMIN/GLOBULIN RATIO 1.3 RATIO (1.1-2.2); ALKALINE PHOSPHATASE 73 U/L (38-126); ALT (SGPT) 40 U/L (21-72); ANION GAP 15 MEQ/L (5-15); AST (SGOT) 30 U/L (17-59); BUN/CREATININE RATIO 24 RATIO (6-26); CALCIUM 8.9 MG/DL (8.4-10.2); CHLORIDE 104 MEQ/L (98-107); CO2 - CARBON DIOXIDE 26 MEQ/L (22-30); CREATININE 0.8 MG/DL (0.8-1.5); GLOMERULAR FILTRATION RATE 94; GLUCOSE 129 MG/DL (75-110); POTASSIUM 3.8 MEQ/L (3.6-5); PROTHROMBIN TIME 10.9 SEC (9.31-12.49); SODIUM 145 MEQ/L (134-144); TOTAL PROTEIN 7.2 G/DL (6.3-8.2)
[2017-03-13 10:01] LABS: PROBNP 205 PG/ML (0-175)
--- NOTE | 2017-03-13 10:02 | NUR ---
TO [facility] PER CART
[2017-03-13 10:03] LABS: BLOOD, URINE NEGATIVE (NEGATIVE); COLOR,URINE YELLOW (YELLOW); LEUKOCYTE ESTERASE ,URINE NEGATIVE (NEGATIVE); NITRITE,URINE NEGATIVE (NEGATIVE); UROBILINOGEN,URINE 0.2 EU/DL (NORMAL)
[2017-03-13] MEDS ORDERED: SILD100T PO (10:04)
[2017-03-13] MEDS ORDERED: ASPI81TA32 PO (10:04)
[2017-03-13] MEDS ORDERED: FINA5TAB42 PO (10:04)
[2017-03-13] MEDS ORDERED: OMEP20CA10 PO (10:04)
[2017-03-13] MEDS ORDERED: LOSA1TAB95 PO (10:04)
--- NOTE | 2017-03-13 10:04 | NUR ---
status PT STATES THAT HER LEGS ACHE. WARM BLANKET APPLIED TO LEGS. SON AT BEDSIDE.
--- NOTE | 2017-03-13 10:06 | NUR ---
RETURNED FROM [facility]
--- NOTE | 2017-03-13 10:39 | NUR ---
PAIN DOESN'T HAVE PAIN UNLESS HE MOVES OR COUGHS
--- NOTE | 2017-03-13 11:00 | NUR ---
STATUS VS & MONITOR UNCHANGED. RESTING.
--- NOTE | 2017-03-13 11:50 | ERPDOC ---
Departure Disposition Decision Date: Mar 13, 2017 Disposition Decision Time: 11:49 Disposition: 01 DISCHARGED HOME, SELF-CARE Impression Impression Impression: Primary Impression: Costochondritis Severity: Moderate Condition: Improved Seen By: Physician only Referrals: KT SERNA MD (Family) Patient Instructions: Chest Pain (ED) Problems/Meds/Labs Reviewed?: Yes Medications reviewed and manag: Yes Additional Instructions: Robaxin 750 mg, 1 tablet every 6 hours as needed for muscle spasm. Hovland 5 mg tablet, 1 tablet every 6 hours as needed for pain. Be cautious as this can cause sedation. Follow up care ordered?: Yes Mental Status: Alert, Oriented Scripts Hydrocodone/Acetaminophen (Hovland 5-325 Tablet) 5-325 Tablet 1 TAB PO QID Y for PAIN, #10 Prov: LAKEISHA BRITO MD 03/13/17 Methocarbamol (Robaxin-750) 750 Mg Tablet 750 MG PO QID Y for SPASMS, #30 TAB Take 1 tablet, by mouth, 4 times a day. Prov: LAKEISHA BRITO MD 03/13/17 HPI - Chest Pain General Chief Complaint: Chest Pain Stated Complaint: CP Time Seen by Provider: 09:34 HPI - Chest Pain Initial Comments 76-year-old gentleman presents with left-sided chest pain. 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 When he woke this morning he had left- sided chest pain radiating into his neck. Pain is worse with movement of the arm or upper body. He does not have any shortness of breath. Patient has no previous cardiac history, does not smoke. He does drink alcohol, 2-3 beers per night. Allergies: Coded Allergies: NKDA (Verified Allergy, Unknown, 03/13/17) Past History Vaccines Hx Influenza Vaccination: Yes (AUG 2012) Hx Pneumococcal Vaccination: Yes (FALL 2008) Physical Exam General Vitals and Pain First Documented Vital Signs Date Time Temp Pulse Resp B/P Pulse Ox O2 Delivery O2 Flow Rate FiO2 03/13/17 09:25 98.4 66 21 187/86 96 Room Air Weight: Kilograms: 91.600 Height (feet): 5 Height (inches): 8.00 Triage Pain Scale: Progress Results/Orders Orders Procedure Category Date Status Time Cbc W/Auto LAB 03/13/17 Complete Diff-Reflex Manual 09:34 Cmp - Comprehensive LAB 03/13/17 Complete Metabolic 09:34 Probnp LAB 03/13/17 Complete 09:34 Troponin I W LAB 03/13/17 Complete Hemolysis Index 09:34 INR LAB 03/13/17 Complete 09:34 Ua, Dip Wreflex LAB 03/13/17 Complete Microsc & Biology Research Assistant 09:34 D-Dimer LAB 03/13/17 Complete 09:34 EKG EKG 03/13/17 Logged 09:34 Chest, Pa & Lateral RAD 03/13/17 Taken 09:34 Iv Lock (Ed Only) EDM 03/13/17 Transmitted 09:34 Normal Saline (Normal PHA 03/13/17 Complete Saline Iv) 09:34 Aspirin (Asa) PHA 03/13/17 Complete 09:45 Nitroglycerin PHA 03/13/17 In Process (Nitrostat) 09:45 Ondansetron Inj PHA 03/13/17 Complete (Zofran) 09:45 Ketorolac (Toradol) PHA 03/13/17 Complete 09:45 Lab Results Laboratory Tests Test 03/13/17 09:33 03/13/17 09:59 White Blood Count 5.9T/MM3 Red Blood Count 5.13M/MM3 Hemoglobin 16.2GM/DL Hematocrit 46.8% Mean Corpuscular Volume 91.2UM3 Mean Corpuscular Hemoglobin 31.6UUG Mean Corpuscular Hemoglobin Concent 34.6GM/DL RDW Standard Deviation 41.9FL Platelet Count 233T/MM3 Mean Platelet Volume 9.5UM3 Immature Granulocyte % (Auto) 0.2% Neutrophils (%) (Auto) 65.5% Lymphocytes (%) (Auto) 26.4% Monocytes (%) (Auto) 4.8% Eosinophils (%) (Auto) 2.2% Basophils (%) (Auto) 0.9% Absolute Immature Granulocyte (auto 0.01T/MM3 Absolute Neutrophils (auto) 3.9T/MM3 Absolute Lymphocytes (auto) 1.6T/MM3 Absolute Monocytes (auto) 0.3T/MM3 Absolute Eosinophils (auto) 0.1T/MM3 Absolute Basophils (auto) 0.1T/MM3 Prothromb Time International Ratio 1.00 D-Dimer < 150NG/ML Turbidity < 20 Sodium Level 145MEQ/L Potassium Level 3.8MEQ/L Chloride Level 104MEQ/L Carbon Dioxide Level 26MEQ/L Anion Gap 15MEQ/L Blood Urea Nitrogen 19.0MG/DL Creatinine 0.8MG/DL Glomerular Filtration Rate Calc 94 BUN/Creatinine Ratio 24RATIO Glucose Level 129MG/DL Calculated Osmolality 283MOSM/KG Calcium Level 8.9MG/DL Total Bilirubin 2.00MG/DL Icterus Index < 2 Aspartate Amino Transf (AST/SGOT) 30U/L Alanine Aminotransferase (ALT/SGPT) 40U/L Alkaline Phosphatase 73U/L Troponin I < 0.012ng/ml HH-Kzm-E-Type Natriuretic Peptide 205PG/ML Total Protein 7.2G/DL Albumin 4.1G/DL Globulin 3.1G/DL Albumin/Globulin Ratio 1.3RATIO Chemistry Specimen Hemolysis < 15 Urine Collection Type Voided-not cc-midstr Urine Color Yellow Urine Turbidity Clear Urine pH 6.0 Urine Specific [place] 1.015 Urine Protein Negative Urine Glucose (UA) Negative Urine Ketones Negative Urine Blood Negative Urine Nitrite Negative Urine Bilirubin Negative Urine Urobilinogen 0.2EU/DL Urine Leukocyte Esterase Negative Urinalysis Comment Microscopic not ind. Medications Current ED Medications Sodium Chloride (Normal Saline IV) 1,000 ml @ 1,000 mls/hr Q1H ONCE IV Last administered on 03/13/17 09:48; Start 03/13/17 at 09:34; Stop 03/13/17 at 10:33 ; Status DC Aspirin (ASA) 324 mg O ONCE PO ; Start 03/13/17 at 09:45; Stop 03/13/17 at 09: 46; Status DC Nitroglycerin (Nitrostat) 0.4 mg Q5MIN PRN SL CHEST PAIN; Start 03/13/17 at 09: 45 Ondansetron HCl (Zofran) 4 mg O ONCE IV Last administered on 03/13/17 09:48; Start 03/13/17 at 09:45; Stop 03/13/17 at 09:46; Status DC Ketorolac Tromethamine (Toradol) 15 mg O ONCE IV Last administered on 09:50; Start 03/13/17 at 09:45; Stop 03/13/17 at 09:46; Status DC Progress Progress Initial cardiac enzymes negative. This is approximately 5 and half hours after initial onset of pain was noticed. Pain is definitely reproducible with palpation of the chest wall and with movement of the left arm. Chest x-ray is negative. He did respond to a dose of Toradol IV, and has noticed improvement in pain. Patient has costochondritis from exertion yesterday. He'll be discharged with muscle relaxer Robaxin, and Hovland for pain if needed. If chest pain increases, he is to return to the ED immediately. We did discuss this, he understands that we have not fully ruled out an IA as it has not been 24 hours since onset of pain. Therefore if he has any recurrence to return. LAKEISHA BRITO MD Mar 13, 2017 11:50
[2017-03-13] MEDS ORDERED: METH-310 PO (11:52)
[2017-03-13] MEDS ORDERED: HYDR-4246 PO (11:52)
[2017-03-13 11:58] VITALS: BP 141/76; PULSE 52; RESP 15; TEMP 98.4; O2SAT 94
--- NOTE | 2017-03-13 11:58 | NUR ---
DISMISSAL AMB Jose ENRIQUEZ
--- NOTE | 2017-03-13 16:30 | DI ---
INDICATION: ITS.REASON: chest pain PROCEDURE: CHEST 2-VIEWS UPRIGHT (PA \T\ LAT) Encounter: Initial COMPARISON: None FINDINGS: The lungs are clear without evidence of focal abnormal airspace opacity. There is no pleural effusion or pneumothorax. The heart size, mediastinal contours and pulmonary vascularity are within normal limits. There is no significant skeletal abnormality. IMPRESSION: No acute cardiopulmonary disease. .
== END 2017-03-13 11:58 | disposition home or self-care (01) ==
LOC: ED 09:20
DX: M94.0 Chondrocostal junction syndrome [Tietze] (principal)
CPT/HCPCS: 71020; 80053; 81003; 83880; 84484; 85025; 85379; 85610; 93005; 96374; 96375; 99284; J1885; J2405; J7030; 36000